=== PATIENT | male | born 1965 | race Hispanic/Latino ===

== ENCOUNTER 2018-02-26 07:17 | Day surgery (SDC) | payer BC ==
[2018-02-25 13:03] VITALS: BMI 24.4
[2018-02-26 07:57] LABS: BASO # 0.04 K/mm3 (0.0-2.0); BASO % 0.6 % (0.0-3.0); EOS % 14.4 % (1.5-5.0); GRAN # 4.17 (1.4-6.5); GRAN % 59.5 % (50.0-68.0); HEMOGLOBIN 13.7 g/dL (14.0-18.0); LYMPH # 1.3 (1.2-3.4); LYMPH % 18.6 % (22.0-35.0); MEAN CELL VOLUME 88.7 fl (80.0-105.0); MEAN CORPUSCULAR HEMOGLOBIN 29.7 pg (25.0-35.0); MEAN CORPUSCULAR HGB CONC 33.5 g/dl (31.0-37.0); MEAN PLATELET VOLUME 11.6 fl (7.0-11.0); MONO # 0.5 (0.1-0.6); MONO % 6.9 % (1.0-6.0); RBC 4.61 10^6/uL (3.5-6.1); RED CELL DISTRIBUTION WIDTH 14.1 % (11.5-14.5)
[2018-02-26 08:11] LABS: INR 0.94 (0.93-1.08); PARTIAL THROMBOPLASTIN TIME 29.3 Seconds (25.1-36.5); PROTHROMBIN TIME 10.8 SECONDS (9.4-12.5)
[2018-02-26] MEDS ORDERED: Midazolam 2 MG/2 ML VIAL ONE (09:06)
[2018-02-26] MEDS ORDERED: Lidocaine 1% Inj (20ml) ONE (09:07)
[2018-02-26] MEDS ORDERED: Oxycodone/Acetaminophen 5/325 mg Tab PO PRN (10:03)
[2018-02-26] MEDS ORDERED: Sodium Chloride 0.45% 1,000 ML IV SCH (10:15)
[2018-02-26 11:16] VITALS: BP 137/85; PULSE 45; RESP 20; TEMP 98.3; O2SAT 98
--- NOTE | 2018-02-26 11:21 | CT ---
PROCEDURE: CT guided omental biopsy. HISTORY: Carcinomatosis. Needs omental biopsy. PHYSICIAN(S): Freddy Chiu MD. TECHNIQUE: The relative risks and indications of the procedure were explained to the patient and consent obtained. The patient was given 2 bottles of oral contrast prior to the procedure. The patient was placed supine on the CT scanner and preliminary images through the upper abdomen obtained. Conscious sedation and monitoring were provided throughout the procedure by a nurse. There is a small amount of ascites and omental thickening noted. Incidental note is made of right hydronephrosis which is moderate. A oblique anterior approach was selected and the area prepped and draped in the usual sterile fashion. 1% Xylocaine was used to anesthetize the skin and soft tissues. A 17-gauge guiding needle was advanced into the omental thickening in the upper abdomen. Its position was confirmed with CT. Using coaxial technique, multiple core biopsies were obtained. The postprocedure images show no evidence of significant hemorrhage. A small amount of free air was noted. The patient was asymptomatic without tenderness or pain. His vital signs were stable. IMPRESSION: 1. CT-guided omental biopsy as described above.
[2018-02-26 14:43] LABS: CALCIUM 9.8 mg/dL (8.4-10.5)
== END 2018-02-26 12:00 | disposition home or self-care (01) ==
LOC: SDS 07:17
PROVIDERS: ATTEND Radiology Vascular & Interventional Radiology
DX: C19 Malignant neoplasm of rectosigmoid junction (principal); C78.6 Secondary malignant neoplasm of retroperitoneum and peritoneum
CPT/HCPCS: 36415; 49180; 77012; 80048; 85025; 85610; 85730; 88305; J2250; J2405; J3010; J7030

== ENCOUNTER 2018-03-11 09:26 | Inpatient (IN) | payer OTHER ==
[2018-03-11 09:36] VITALS: BMI 24.3
--- NOTE | 2018-03-11 10:42 | ED PDOC ---
Arrival/HPI - General Historian: Patient - History of Present Illness Time/Duration: > week Symptom Course: Worsening Activities at Onset: Other - General Chief Complaint: Abnormal Skin Integrity Time Seen by Provider: 03/11/18 09:31 - History of Present Illness Narrative History of Present Illness (Text): 03/11/18 10:49 53 yo M with PMH of anxiety presents to ER sent by his oncologist Dr. Fraga for hyperbilirubinemia. Per patient, his bilirubin level was 14.4, up from 4 two weeks ago. Per patient, a few weeks ago, he was persistently nauseous and vomiting, then developed scleral icterus. Workup revealed fluid in the abdomen, and omental masses, which were biopsied and showed mucinous adenocarcinoma of unknown origin. Patient subsequently had colonoscopy and EGD with Dr. De Dios, which were both negative. Patient had PET/CT today, which has not yet been interpreted. Patient currently denies any pain, nausea, vomiting, diarrhea, constipation, fever, chills, abdominal pain, chest pain, shortness of breath, abdominal distention or bloating. (Madhav,Shyann) Past Medical History - Provider Review Nursing Documentation Reviewed: Yes - Travel History Have you recently traveled outside [place] w/in the past 3 mons?: No - Past History Past History: No Previous - Infectious Disease Hx of Infectious Diseases: None - Tetanus Immunization Tetanus Immunization: Unknown - Cardiac Hx Pacemaker: No - Neurological Hx Paralysis: No - Hematological/Oncological Hx Blood Transfusions: No - Musculoskeletal/Rheumatological Hx Musculoskeletal Disorders: Yes - Psychiatric Hx Emotional Abuse: No Hx Physical Abuse: No Hx Substance Use: Yes (marijuana) - Anesthesia Hx Anesthesia: Yes Hx Anesthesia Reactions: No Hx Malignant Hyperthermia: No - Suicidal Assessment Feels Threatened In Home Enviroment: No Family/Social History - Physician Review Nursing Documentation Reviewed: Yes Family/Social History: Neoplasm/Cancer Smoking Status: Former Smoker (13 PYH, quit 15 years ago) Hx Alcohol Use: Yes (heavy drinker, quit 15 years ago) Hx Substance Use: Yes (marijuana, cocaine (15 yrs ago)) Route: Smoking/Inhalation Allergies/Home Meds Allergies/Adverse Reactions: Allergies No Known Allergies Allergy (Verified 03/11/18 13:11) Home Medications: Home Meds Medication Instructions Recorded Confirmed Sertraline [Zoloft] 100 mg PO DAILY 02/25/18 02/26/18 Review of Systems - Review of Systems Constitutional: Normal Eyes: Normal ENT: Normal Respiratory: Normal Cardiovascular: Normal Gastrointestinal: Normal Genitourinary Male: Normal Musculoskeletal: Normal Skin: Other (jauundice) Neurological: Normal Hemo/Lymphatic: Normal Psychiatric: Normal Physical Exam Vital Signs Reviewed: Yes Temperature: Afebrile Blood Pressure: Normal Pulse: Regular Respiratory Rate: Normal Appearance: Positive for: Well-Appearing, Non-Toxic Pain Distress: None Mental Status: Positive for: Alert and Oriented X 3 - Systems Exam Head: Present: Atraumatic, Normocephalic Pupils: Present: PERRL Extroacular Muscles: Present: EOMI Conjunctiva: Present: Normal, Other (icteric) Mouth: Present: Moist Mucous Membranes Neck: Present: Normal Range of Motion Respiratory/Chest: Present: Clear to Auscultation, Good Air Exchange Cardiovascular: Present: Regular Rate and Rhythm, Normal S1, S2 Abdomen: Present: Normal Bowel Sounds, Other (no shifting dullness or fluid wave ). No: Tenderness, Distention, Peritoneal Signs, Rebound, Guarding Upper Extremity: Present: Normal Inspection Lower Extremity: Present: Normal Inspection. No: CALF TENDERNESS Neurological: Present: GCS=15, CN II-XII Intact Skin: Present: Warm, Dry, Other (diffuse jaundice) Psychiatric: Present: Alert, Oriented x 3, Normal Insight, Normal Concentration Vital Signs Temp Pulse Resp BP Pulse Ox 03/11/18 13:08 53 L 18 149/88 100 03/11/18 09:45 97.6 F 66 17 141/88 99 Medical Decision Making ED Course and Treatment: 03/11/18 11:01 Impression: Jaundice Differential diagnoses include, but are not limited to: obstructive jaundice 2/ 2 metastatic disease, primary hepatobiliary obstructive disease Plan: -- Labs: CBC, CMP, PT/PTT, UA -- CXR and EKG -- Reassess and dispo Prior visits: None Progress notes: -- Discussed case with Dr. De Dios, patient's GI doctor, who recommends MRCP for workup of obstructive jaundice -- Considering acuity of bilirubin elevation, will discuss admission with PMD Dr. Evans 03/11/18 12:09 -- Discussed case with Dr. Reyes, who accepts patient to his service. Patient in agreement with plan (Shyann Corey) Patient seen and evaluated with medical assistant supervisor. On exam, patient is jaundiced, but afebrile, denies pain or discomfort. Bilirubin is acutely elevated, suspect possible biliary obstruction. Discussed case with Dr. De Dios, GI as well as his PMD, Dr Abbe Medrano. MRCP ordered and patient admitted for further workup. He is cv stable with no pain or fever in ED. (Erin,Veronica) - Lab Interpretations Lab Results: 03/11/18 10:40 03/11/18 10:40 Lab Results 03/11/18 10:40: Sodium 135, Potassium 3.9, Chloride 100, Carbon Dioxide 23, Anion Gap 15, BUN 23 H, Creatinine 1.5, Est GFR ( Amer) 59, Est GFR (Non- Af Amer) 49, Random Glucose 135 H, Calcium 9.0, Total Bilirubin 17.8 H, Direct Bilirubin 15.8 H, AST 137 H, ALT 261 H, Alkaline Phosphatase 460 H, Total Protein 7.1, Albumin 3.9, Globulin 3.2, Albumin/Globulin Ratio 1.2 03/11/18 10:40: Urine Color Dark yellow, Urine Appearance Slight-cloudy, Urine pH 6.5, Ur Specific [place] 1.020, Urine Protein 30 H, Urine Glucose (UA) Negative, Urine Ketones Negative, Urine Blood Negative, Urine Nitrate Negative, Urine Bilirubin Large H, Urine Urobilinogen 1.0 H, Ur Leukocyte Esterase Negative, Urine RBC 0 - 2, Urine WBC 2 - 5, Ur Epithelial Cells None, Amorphous Sediment Few, Urine Bacteria Many, Coarse Granular Casts Trace H 03/11/18 10:40: PT 11.6, INR 1.01, APTT 27.4 03/11/18 10:40: WBC 8.8 D, RBC 3.98, Hgb 11.9 L, Hct 33.8 L, MCV 84.9 D, MCH 29.9, MCHC 35.2, RDW 16.3 H, Plt Count 291, MPV 12.0 H, Gran % 74.4 H, Lymph % ( Auto) 14.7 L, [place] % (Auto) 6.6 H, Eos % (Auto) 4.0, Baso % (Auto) 0.3, Gran # 6.51 H, Lymph # (Auto) 1.3, [place] # (Auto) 0.6, Eos # (Auto) 0.4, Baso # (Auto) 0.03 - RAD Interpretation Radiology Orders: 03/11/18 10:17 CHEST PORTABLE [RAD] Stat - Medication Orders Current Medication Orders: Sodium Chloride (Sodium Chloride 0.9%) 1,000 mls @ 100 mls/hr IV .Q10H [facility] Last Admin: 03/12/18 00:57 Dose: 100 mls/hr eMAR Start Stop Document 03/12/18 00:57 (Rec: 03/12/18 00:57 [id number]) Intravenous Solution Start Date 03/12/18 Start Time 00:57 Pantoprazole Sodium (Protonix Ec Tab) 40 mg PO 0600 [facility] Sertraline HCl (Zoloft) 100 mg PO DAILY [facility] Discontinued Medications Cholestyramine Resin (Questran) 4 gm PO DAILY [facility] Last Admin: 03/11/18 15:07 Dose: 4 gm Pneumococcal Polyvalent Vaccine (Pneumovax 23 Vaccine) 0.5 ml IM .ONCE ONE Stop: 03/11/18 17:05 Disposition/Present on Arrival - Present on Arrival Any Indicators Present on Arrival: No History of DVT/PE: No History of Uncontrolled Diabetes: No Urinary Catheter: No History of Decub. Ulcer: No History Surgical Site Infection Following: None - Disposition Have Diagnosis and Disposition been Completed?: Yes Disposition Time: 12:10 Patient Plan: Admission - Disposition Diagnosis: Hyperbilirubinemia, Jaundice, Carcinomatosis Disposition: HOSPITALIZED Condition: GUARDED
--- NOTE | 2018-03-11 10:48 | RAD ---
HISTORY: jaundice; h/o cancer COMPARISON: No prior. FINDINGS: LUNGS: No active pulmonary disease. PLEURA: No significant pleural effusion identified, no pneumothorax apparent. CARDIOVASCULAR: Normal. OSSEOUS STRUCTURES: No significant abnormalities. VISUALIZED UPPER ABDOMEN: Normal. OTHER FINDINGS: None. IMPRESSION: No active disease.
[2018-03-11 10:52] LABS: BASO # 0.03 K/mm3 (0.0-2.0); BASO % 0.3 % (0.0-3.0); EOS # 0.4 (0.0-0.7); GRAN # 6.51 (1.4-6.5); GRAN % 74.4 % (50.0-68.0); HEMOGLOBIN 11.9 g/dL (14.0-18.0); LYMPH # 1.3 (1.2-3.4); LYMPH % 14.7 % (22.0-35.0); MEAN CELL VOLUME 84.9 fl (80.0-105.0); MEAN CORPUSCULAR HEMOGLOBIN 29.9 pg (25.0-35.0); MEAN CORPUSCULAR HGB CONC 35.2 g/dl (31.0-37.0); MONO # 0.6 (0.1-0.6); MONO % 6.6 % (1.0-6.0); RBC 3.98 10^6/uL (3.5-6.1); RED CELL DISTRIBUTION WIDTH 16.3 % (11.5-14.5); WHITE BLOOD COUNT 8.8 10^3/ul (4.5-11.0)
[2018-03-11 11:07] LABS: PROTHROMBIN TIME 11.6 SECONDS (9.4-12.5)
[2018-03-11 11:08] LABS: INR 1.01 (0.93-1.08); PARTIAL THROMBOPLASTIN TIME 27.4 Seconds (25.1-36.5)
[2018-03-11 11:17] LABS: BILIRUBIN,DIRECT 15.8 mg/dL (0.0-0.4)
[2018-03-11 11:21] LABS: ALB/GLOB RATIO 1.2 (1.1-1.8); ALBUMIN 3.9 g/dL (3.0-4.8)
[2018-03-11 11:26] LABS: PH,URINE 6.5 (4.7-8.0); URINE BILIRUBIN LARGE (NEGATIVE); URINE BLOOD NEGATIVE (NEGATIVE); URINE GLUCOSE (UA) NEGATIVE (NEGATIVE); URINE LEUKOCYTE ESTERASE NEGATIVE Leu/uL (NEGATIVE); URINE PROTEIN 30 mg/dL (<30 mg/dL)
[2018-03-11 11:27] LABS: URINE APPEARANCE SLIGHT-CLOUDY (CLEAR); URINE COLOR DARK YELLOW (YELLOW)
[2018-03-11 11:28] LABS: URINE BACTERIA MANY (NEG); URINE RBC 0 - 2 /hpf (0-2)
[2018-03-11 11:29] LABS: URINE COARSE GRANULAR CAST TRACE /hpf (0-2)
[2018-03-11 11:30] LABS: URINE AMORPHOUS SEDIMENT FEW
[2018-03-11] MEDS ORDERED: Gadodiamide 287 MG/ML VIAL (20ML) IV ONE (13:38)
[2018-03-11] MEDS ORDERED: Cholestyramine 4 gm/Pkt UD PO SCH (14:45)
--- NOTE | 2018-03-11 14:49 | MRI ---
PROCEDURE: MRI Abdomen with and without contrast HISTORY: Obstructive jaundice COMPARISON: PET-CT scan performed on the same day. TECHNIQUE: Multisequence, multiplanar MR images of the abdomen with and without gadolinium contrast enhancement. 20 cc of Omniscan FINDINGS: LIVER: There is severe intrahepatic ductal dilatation. There is dilatation of the hepatic duct just above the level of the cystic duct. This measures 13 mm in diameter. There is an abrupt cut off with nonvisualization of the common duct below this level. There is no obvious enhancing mass or stone. The finding is best demonstrated on image 19 series 7 GALLBLADDER: Unremarkable. SPLEEN: Unremarkable. PANCREAS: Unremarkable. ADRENALS: Unremarkable. KIDNEYS: There is severe hydronephrosis on the right. AORTA: No aneurysm. ASCITES: There is moderate ascites. There is an omental mass. The omentum was recently biopsied. PERITONEUM: As above LYMPH NODES: Unremarkable. OTHER FINDINGS: None. IMPRESSION: Biliary obstruction just below the level of the cystic duct. The etiology of obstruction uncertain. There is moderate ascites with omental mass. Severe right-sided hydronephrosis
[2018-03-11] MEDS: Sodium Chloride 0.9% 1,000 ML IV SCH (15:08)
--- NOTE | 2018-03-11 15:22 | HP ---
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 Fraga (Heme/Onc) after outpatient labs demonstrated severe hyperbilirubinemia of 16. The patient was initially seen in his PMD's office on 02/18/2018 for evaluation of nausea, vomiting and inability to tolerate p.o. intake. Physical examination at that time found him to be jaundiced and icteric but was otherwise unremarkable. He was sent for a CT of the abdomen and pelvis with findings demonstrating mild to moderate ascites and a mesenteric nodularity with caking highly suggestive of a tumor. Arrangements were made for CT-guided biopsy with Dr. Freddy Chiu on 02/26/2018 with the pathology report confirming metastatic mucinous adenocarcinoma favoring colorectal origin. The patient was then referred to Dr. De Dios of GI and underwent an EGD and colonoscopy, both of which were unremarkable. He was also referred to Dr. Fraga for continued workup and staging of his newly-diagnosed omental adenocarcinoma with unknown primary. The patient was scheduled for a PET scan on the day of presentation to the ED but when his labs demonstrated the profound hyperbilirubinemia (which was coral from 4.2 in 1 week) he was advised to present to the ED for continued management. PAST MEDICAL HISTORY: As per HPI, also depression. PAST SURGICAL HISTORY: Surgical debridement of MRSA infection on his lower extremities. ALLERGIES: NKDA. MEDICATIONS: Protonix 40 mg p.o. daily and Zoloft 100 mg p.o. daily. FAMILY HISTORY: Significant for hypertension and lung cancer in his father. No history of colorectal cancer. SOCIAL HISTORY: The patient is and lives with his . He reports a former 30-pack- year smoking history but quit 15 years ago. He reports social alcohol use and denies illicit drug abuse. REVIEW OF SYSTEMS: Positive for weakness, malaise, poor appetite, jaundice, nausea, abdominal distention and abdominal pain. Remainder of ROS is negative except as per HPI. PHYSICAL EXAMINATION: VITAL SIGNS: Temperature 97.6, pulse 66, blood pressure 141/88, respiratory rate 18, oxygen saturation 99% on room air. GENERAL: No apparent distress. HEENT: PERRL, EOMI. Sclerae are icteric. Conjunctival pallor is noted. NECK: No JVD. No bruits. No lymphadenopathy. LUNGS: Clear to auscultation. CARDIOVASCULAR: Regular rate and rhythm. Normal S1 and S2. No murmurs, rubs or gallops. ABDOMEN: Normoactive bowel sounds. Soft, nontender, mildly distended. No rigidity. EXTREMITIES: No edema. NEUROLOGIC: Awake, alert and oriented x 3. No focal motor deficits. No asterixis. LABORATORY DATA: WBC 8.8, hemoglobin 11.9, hematocrit 34, platelets 291. Chemistry reviewed and unremarkable. Total bilirubin 17.8, direct bilirubin 15.8, AST 137, ALT 261, alk phos 460. INR 1. IMAGING STUDIES: MRCP demonstrates severe intrahepatic ductal dilatation just above the level of the cystic duct with biliary obstruction and moderate ascites. 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 PLAN: 1. Metastatic mucinous adenocarcinoma of unknown primary. The patient is s/p MRCP with the results having been reviewed. Dr. De Dios of GI has been consulted for further evaluation and recommendations. Dr. Fraga of Hematology/Oncology has also been consulted. We will start the patient on NS at 100 mL per hour. We will start Cholestyramine 4 g p.o. daily. The patient underwent a PET scan earlier today with the results still pending. We will need to discuss the optimal approach for relieving the intrahepatic obstruction and possible need for ERCP and intrahepatic stent placement. 2. Depression. Resume Zoloft 100 mg p.o. daily. 3. Prophylaxis. GI prophylaxis is not indicated as the patient is eating. DVT prophylaxis is not indicated as the patient is ambulatory. CODE STATUS: Full code. Rajinder Medrano MD MTDJoe
[2018-03-11] MEDS ORDERED: Pneumococcal 23-Valent Vaccine IM ONE (17:04)
--- NOTE | 2018-03-11 18:39 | CARD ---
APPROVED REPORT EKG Measurement Heart [id number] <Conclusion> Normal sinus rhythm Incomplete right bundle branch block Septal infarct, age undetermined Abnormal ECG
--- NOTE | 2018-03-12 00:15 | CP.PCM.CON ---
History of Present Illness - History of Present Illness History of Present Illness: Mr. Martin is a young 53 year old male recently diagnosed with adenocarcinoma of unknown primary on omental biopsy. He developed jaundice few weeks ago, bilurubin was 4.0. CT abdomen without contrast also showed right hydronephrosis. Blood work done on 02/03/18 showed increased bilirubin to 16.0. He was advised admission to hospital. CT PET scan done today did not show any mass lesion. MRCP also done today showed intrahepatic biliary dilatation. NO mass in pancreas or randy hepatis identified. He also has ascites. No nausea, vomiting. EGD, colonoscopy were negative for any mass lesion. Review of Systems - Constitutional Constitutional: As Per HPI, Fatigue, Malaise, Weakness - EENT Eyes: absent: As Per HPI, Blind Spots, Blurred Vision, Change in Vision, Decreased Night Vision, Diplopia, Discharge, Dry Eye, Exophthalmos, Floaters, Irritation, Itchy Eyes, Loss of Peripheral Vision, Pain, Photophobia, Requires Corrective Lenses, Sees Flashes, Spots in Vision, Tunnel Vision, Other Visual Disturbances, Loss of Vision, Other Ears: absent: As Per HPI, Decreased Hearing, Ear Discharge, Ear Pain, Tinnitus, Abnormal Hearing, Disequilibrium, Dizziness, Other Nose/Mouth/Throat: absent: As Per HPI, Epistaxis, Nasal Congestion, Nasal Discharge, Nasal Obstruction, Nasal Trauma, Nose Pain, Post Nasal Drip, Sinus Pain, Sinus Pressure, Bleeding Gums, Change in Voice, Dental Pain, Dry Mouth, Dysphagia, Halitosis, Hoarsness, Lip Swelling, Mouth Lesions, Mouth Pain, Odynophagia, Sore Throat, Throat Swelling, Tongue Swelling, Facial Pain, Neck Pain, Neck Mass, Other - Cardiovascular Cardiovascular: absent: As Per HPI, Acrocyanosis, Chest Pain, Chest Pain at Rest , Chest Pain with Activity, Claudication, Diaphoresis, Dyspnea, Dyspnea on Exertion, Edema, Irregular Heart Rhythm, Pain Radiating to Arm/Neck/Jaw, Leg Edema, Leg Ulcers, Lightheadedness, Orthopnea, Palpitations, Paroxysmal Nocturnal Dyspnea, Pedal Edema, Radiating Pain, Rapid Heart Rate, Slow Heart Rate, Syncope, Other - Respiratory Respiratory: absent: As Per HPI, Cough, Dyspnea, Hemoptysis, Dyspnea on Exertion , Wheezing, Snoring, Stridor, Pain on Inspiration, Chest Congestion, Excessive Mucous Production, Change in Mucous Color, Pain with Coughing, Other - Gastrointestinal Gastrointestinal: absent: As Per HPI, Abdominal Pain, Belching, Bloating, Change in Bowel Habits, Change in Stool Character, Coffee Ground Emesis, Constipation, Cramping, Diarrhea, Dyspepsia, Dysphagia, Early Satiety, Excessive Flatus, Fecal Incontinence, Heartburn, Hematemesis, Hematochezia, Loose Stools, Melena, Nausea, Odynophagia, Temesmus, Vomiting, Other - Genitourinary Genitourinary: As Per HPI - Musculoskeletal Musculoskeletal: absent: As Per HPI, Abnormal Gait, Arthralgias, Atrophy, Back Pain, Deformity, Joint Swelling, Limited Range of Motion, Loss of Height, Muscle Cramps, Muscle Weakness, Myalgias, Neck Pain, Numbness, Radiating Pain into Limb, Stiffness, Tingling, Other - Integumentary Integumentary: Jaundice - Neurological Neurological: absent: As Per HPI, Abnormal Gait, Abnormal Hearing, Abnormal Movements, Abnormal Speech, Behavioral Changes, Burning Sensations, Confusion, Convulsions, Disequilibrium, Dizziness, Numbness, Focal Weakness, Frequent Falls , Headaches, Lack of Coordination, Loss of Vision, Memory Loss, Paresthesias, Radicular Pain, Restless Legs, Sensory Deficit, Syncope, Tingling, Tremor, Vertigo, Weakness, Other Visual Disturbances, Other - Psychiatric Psychiatric: absent: As Per HPI, Abnormal Sleep Pattern, Anhedonia, Anxiety, Auditory Hallucinations, Behavioral Changes, Change in Appetite, Change in Libido, Confusion, Depression, Difficulty Concentrating, Hallucinations, Homicidal Ideation, Hopelessness, Irritability, Memory Loss, Mood Swings, Panic Attacks, Paranoia, Suicidal Ideation, Visual Hallucinations, Tactile Hallucinations, Other - Endocrine Endocrine: absent: As Per HPI, Change in Body Appearance, Change in Libido, Cold Intolorance, Deepening of Voice, Excessive Sweating, Fatigue, Flushing, Heat Intolorance, Increase in Ring/Shoe/Hat Size, Palpitations, Polydipsia, Polyphagia, Polyuria, Other - Hematologic/Lymphatic Hematologic: As Per HPI Past Patient History - Infectious Disease Hx of Infectious Diseases: None - Tetanus Immunizations Tetanus Immunization: Unknown - Past Social History Smoking Status: Former Smoker - CARDIAC Hx Cardiac Disorders: No Hx Pacemaker: No - PULMONARY Hx Respiratory Disorders: No - NEUROLOGICAL Hx Neurological Disorder: No - HEENT Hx HEENT Problems: No - RENAL Hx Chronic Kidney Disease: No - ENDOCRINE/METABOLIC Hx Endocrine Disorders: No - HEMATOLOGICAL/ONCOLOGICAL Hx Blood Disorders: Yes Hx Cancer: Yes (COLON CA WITH METS) Hx Metastesis: Yes (LIVER) - INTEGUMENTARY Hx Dermatological Problems: Yes (JAUNDICED 03-11-18) - MUSCULOSKELETAL/RHEUMATOLOGICAL Hx Musculoskeletal Disorders: Yes Hx Falls: No - GASTROINTESTINAL Hx Gastrointestinal Disorders: Yes (CONSTIPATION) - GENITOURINARY/GYNECOLOGICAL Hx Genitourinary Disorders: No - PSYCHIATRIC Hx Psychophysiologic Disorder: Yes (USED TO SMOKE CIGARETTES,ETOH ABUSE, MARIJUANA AND COCAINE USE) Hx Emotional Abuse: No Hx Physical Abuse: No Hx Substance Use: Yes (H/O COCAINE,MJ) - SURGICAL HISTORY Hx Surgeries: Yes (OMENTAL TISSUE BIOPSY,SCAR TISSUE REMOVED TOLEFT LEG 2009) - ANESTHESIA Hx Anesthesia: Yes Hx Anesthesia Reactions: No Hx Malignant Hyperthermia: No Meds Allergies/Adverse Reactions: Allergies Allergy/AdvReac Type Severity Reaction Status Date / Time No Known Allergies Allergy Verified 03/11/18 13:11 - Medications Medications: Current Medications Sodium Chloride (Sodium Chloride 0.9%) 1,000 mls @ 100 mls/hr IV .Q10H [facility] Last Admin: 03/11/18 15:08 Dose: 100 mls/hr Sertraline HCl (Zoloft) 100 mg PO DAILY [facility] Physical Exam - Constitutional Appears: Non-toxic - Head Exam Head Exam: ATRAUMATIC, NORMAL INSPECTION, NORMOCEPHALIC - Eye Exam Eye Exam: Normal appearance, Scleral icterus - ENT Exam ENT Exam: Mucous Membranes Moist - Neck Exam Neck exam: Positive for: Normal Inspection - Respiratory Exam Respiratory Exam: Clear to Auscultation Bilateral, NORMAL BREATHING PATTERN - Cardiovascular Exam Cardiovascular Exam: REGULAR RHYTHM, +S1, +S2 - GI/Abdominal Exam GI & Abdominal Exam: Normal Bowel Sounds, Soft - Extremities Exam Extremities exam: Positive for: normal inspection - Back Exam Back exam: NORMAL INSPECTION - Neurological Exam Neurological exam: Alert, CN II-XII Intact, Normal Gait, Oriented x3 - Psychiatric Exam Psychiatric exam: Normal Affect - Skin Additional comments: icteric Results - Vital Signs Recent Vital Signs: Last Vital Signs Temp 97.6 F 03/11/18 22:51 Pulse 57 L 03/11/18 22:51 Resp 18 03/11/18 22:51 BP 120/76 03/11/18 22:51 Pulse Ox 96 03/11/18 22:51 - Labs Result Diagrams: 03/11/18 10:40 03/11/18 10:40 Assessment & Plan - Assessment and Plan (Free Text) Assessment: 1. Adenocarcinoma on omental biopsy. Primary unknown. Immunostains suggestive of colo-rectal origin. CT-PET no mass lesion identified. MRCP- no mass, biliary dilatation. Discussed with Dr. Lomax. ERCP planned . Dr. Montgomery consulted. [place] biopsy will be taken . If biliary drainage could not be done by ERCP, then percutaneous drainage will be planned. 2. jaundice : increased in past one week. Biliary drainage planned. 3. Right hydronephrosis : etiology unknown. No discrete mass identified leading to compression. 4. Heme : stable. discussed with patient at length. Discussed with telephonically as per patient's request. Explained further work up. Answered all their questions. Discussed with Dr. Reyes, Thank you for allowing us to participate in Mr. Mario palomino. - Date & Time Date: 03/12/18 Time: 17:00
[2018-03-12] MEDS: Sodium Chloride 0.9% 1,000 ML IV SCH (00:57)
[2018-03-12 07:31] LABS: BASO # 0.03 K/mm3 (0.0-2.0); BASO % 0.4 % (0.0-3.0); EOS # 0.5 (0.0-0.7); EOS % 7.9 % (1.5-5.0); GRAN # 4.52 (1.4-6.5); GRAN % 67.7 % (50.0-68.0); HEMOGLOBIN 11.6 g/dL (14.0-18.0); LYMPH % 14.3 % (22.0-35.0); MEAN CELL VOLUME 85.3 fl (80.0-105.0); MEAN CORPUSCULAR HEMOGLOBIN 29.8 pg (25.0-35.0); MEAN CORPUSCULAR HGB CONC 34.9 g/dl (31.0-37.0); MEAN PLATELET VOLUME 12.4 fl (7.0-11.0); MONO # 0.7 (0.1-0.6); MONO % 9.7 % (1.0-6.0); RBC 3.89 10^6/uL (3.5-6.1); RED CELL DISTRIBUTION WIDTH 16.9 % (11.5-14.5); WHITE BLOOD COUNT 6.7 10^3/ul (4.5-11.0)
[2018-03-12 07:49] LABS: ALB/GLOB RATIO 1.1 (1.1-1.8); ALBUMIN 3.4 g/dL (3.0-4.8); ALT/SGPT 226 U/L (7-56); AST/SGOT 117 U/L (17-59); BLOOD UREA NITROGEN 18 mg/dL (7-21); CALCIUM 9.1 mg/dL (8.4-10.5); GFR AFRICAN-AMERICAN > 60; GFR NON-AFRICAN AMERICAN 53
--- NOTE | 2018-03-12 09:03 | PN ---
SUBJECTIVE: The patient was seen and examined at bedside on the general medical lao. No acute events overnight. He remains afebrile, hemodynamically stable and is pending evaluation with Dr. Montgomery for ERCP. OBJECTIVE: VITAL SIGNS: Temperature 98.1, pulse 50, blood pressure 123/82, respiratory rate 20, oxygen saturation 99% on room air. GENERAL: Jaundiced man, sitting up in his chair in no apparent distress. HEENT: PERRL, EOMI. Sclerae are icteric. No conjunctival pallor. NECK: No JVD. No bruits. No lymphadenopathy. LUNGS: Clear to auscultation. CARDIOVASCULAR: Regular rate and rhythm. Normal S1 and S2. No murmurs, rubs or gallops. ABDOMEN: Normoactive bowel sounds. Soft, nontender. Mildly distended. No rigidity. EXTREMITIES: No edema. NEUROLOGIC: Awake, alert and oriented x 3. No focal motor deficits. No asterixis. LABORATORY DATA: WBC 6.7, hemoglobin 11.6, hematocrit 33, platelets 276. Chemistry reviewed and unremarkable. T bili 17.4, AST 117, ALT 226, alk phos 432. 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 PLAN: 1. Metastatic mucinous adenocarcinoma of unknown primary. MRCP results reviewed and the patient is pending ERCP with Dr. Montgomery. If ERCP is unsuccessful/unfeasible, we will discuss with Dr. Freddy Chiu the possibility of palliative percutaneous drainage. Input from Dr. Fraga appreciated. Official PET scan results are pending. 2. Depression. Continue Zoloft 100 mg p.o. daily. 3. Prophylaxis. Continue Protonix for GI prophylaxis. DVT prophylaxis is not indicated as the patient is ambulatory. CODE STATUS: Full code. Rajinder Medrano MD [facility]MAN
[2018-03-12] MEDS: Pantoprazole 40 mg EC Tab PO SCH (10:09)
--- NOTE | 2018-03-12 10:56 | CON ---
DATE: 03/12/2018 CONSULTATION IN GASTROENTEROLOGY REQUESTING PHYSICIAN: Rajinder Medrano MD. REASON FOR CONSULT: I have been asked to see this 53-year-old male with several weeks of midabdominal pain, intermittent vomiting, approximate 10 pounds weight loss, who saw Dr. Rajinder Medrano in his office approximately 2 weeks ago and was noted to be jaundiced. Initial blood work showed bilirubin to be in the 4 g range with mildly elevated liver enzymes. The patient underwent a CT scan of the abdomen and pelvis as an outpatient, which revealed lymphadenopathy and omental metastasis. The patient underwent an outpatient CT-guided biopsy of the omental metastasis, which revealed mucinous adenocarcinoma suggestive of colon primary. The patient underwent an upper endoscopy and colonoscopy this week which were negative for malignancy. He did have a small duodenal ulcer, which was nonbleeding. The patient was seen by Dr. Fraga. Repeat blood work several days ago showed his total bilirubin to be in the 17 g range, which was up from around 4 two weeks ago. The patient underwent a MRI, MRCP yesterday, which revealed obstruction of the mid common bile duct with severe intrahepatic biliary dilatation. The patient is admitted for further treatment. He currently denies any abdominal pain, fevers, chills, nausea, vomiting, rectal bleeding or melena. He does admit to pruritus. PAST MEDICAL HISTORY: Notable for cellulitis of his lower extremities with MRSA, depression. PAST SURGICAL HISTORY: Notable for debridement of lower extremity infection. FAMILY HISTORY: Notable for lung cancer in the father and hypertension. SOCIAL HISTORY: The patient has smoked up to between 1-2 packs of cigarettes a day for many years, but quit 15 years ago. He denies alcohol abuse. REVIEW OF SYSTEMS: Fourteen-point review of systems is notable for jaundice, abdominal pain, weight loss, generalized weakness. MEDICATIONS AT HOME: Include sertraline and Protonix. PHYSICAL EXAMINATION: GENERAL: Middle-aged male, appearing deeply jaundiced. VITAL SIGNS: Revealed temperature of 98.1, blood pressure 123/82, heart rate of 50. HEENT: Reveals sclerae to be icteric. Conjunctivae pink. NECK: Supple. CHEST: Reveal lungs to be clear. HEART: Reveals a regular rate and rhythm. ABDOMEN: Softly distended, nontender. No palpable mass. EXTREMITIES: Show no edema. LABORATORY DATA: Reveal white blood cell count 6.7, hemoglobin 11.6, platelet count 276,000. Chemistries reveal total bilirubin of 17.8, AST 137, ALT 261, alkaline phosphatase of 460, BUN 23, creatinine 1.5. Coags reveal PT 11.6, INR 1.01. IMPRESSION: A 53-year-old male with peritoneal carcinomatosis with obstructive jaundice with a biopsy of omental metastasis showing mucinous adenocarcinoma suggestive of colorectal etiology, also possibly pancreatico-hepatobiliary with [id number] positive staining on immunologic staining of the biopsy, one must rule out a primary cholangiocarcinoma of the common bile duct versus obstruction from extrinsic compression from lymphadenopathy or omental metastasis. RECOMMENDATIONS: I have requested Dr. Montgomery to perform an EUS, ERCP and possible SpyGlass with stent placement for biliary drainage. The patient's overall prognosis is poor with continue PPI given history of recently diagnosed duodenal ulcer. Kb De Dios MD
--- NOTE | 2018-03-12 11:37 | CT ---
PROCEDURE: CT Abdomen and Pelvis with contrast HISTORY: Pancreatic cancer COMPARISON: March 11, 2018. MRI abdomen with without contrast Summary of findings on the comparison examination: Biliary obstruction just below the level of cystic duct. TECHNIQUE: Contrast dose: 150 cc Omnipaque 350 Radiation dose: Total exam DLP = mGy-cm. This CT exam was performed using one or more of the following dose reduction techniques: Automated exposure control, adjustment of the mA and/or kV according to patient size, and/or use of iterative reconstruction technique. FINDINGS: LOWER THORAX: Unremarkable. LIVER: Profound dilatation of the intrahepatic biliary radicles. The common bile duct is dilated. The point of obstruction appears to be confluence of the common bile duct and cystic duct. No masses identified. This favors a diagnosis of cholangiocarcinoma rather than clinically suspected pancreatic neoplasm. Patent portal venous system. Intrahepatic, common portal veins and splenic vein are patent. GALLBLADDER AND BILE DUCTS: Unremarkable. PANCREAS: Unremarkable. No gross lesion or ductal dilatation. SPLEEN: Unremarkable. ADRENALS: Unremarkable. No mass. KIDNEYS AND URETERS: Marked right-sided hydronephrosis and hydroureter. The ureter area is dilated to the point of the iliac crests pelvic rim. This is confirmed on axial series 7 image 100/coronal series 604, image 64. VASCULATURE: Unremarkable. No aortic aneurysm. BOWEL: Unremarkable. No obstruction. No gross mural thickening. APPENDIX: A normal appendix is not visualized. PERITONEUM: Diffuse peritoneal carcinomatosis with bulky tumor in the upper and abdomen. Moderate volume intra-abdominal and pelvic ascites. Loculated ascites/pelvic cystic tumor identified anteriorly interposed between the peritoneal reflection in the anterolateral left wall the urinary bladder. Additional tumor deposits are seen in the deep pelvis. LYMPH NODES: Lymphadenopathy is difficult to distinguish from peritoneal carcinomatosis and on opacified bowel. BLADDER: Unremarkable. REPRODUCTIVE: The prostate is inseparable from pelvic tumor. BONES: No acute fracture. OTHER FINDINGS: None. IMPRESSION: 1. Markedly dilated intrahepatic biliary radicles. Beyond the confluence of the bile ducts and cystic duct the distal common bile duct is not seen. Differential considerations would include cholangiocarcinoma, metastatic disease to the randy hepatis region. The most typically etiology would be the alimentary tract. There is no pancreatic mass. 2. Peritoneal carcinomatosis, moderate volume intra-abdominal pelvic ascites. 3. Obstructive uropathy unilateral, right side. Hydronephrosis, hydroureter to a point of obstruction is been described above.
--- NOTE | 2018-03-12 12:27 | CP.PCM.CON ---
<Sobeida Mccarthy - Last Filed: 03/12/18 13:16> History of Present Illness - History of Present Illness History of Present Illness: GI Fellow PGY 4 Consult Note This is a 53 year old male with a pmhx of anxiety, alcohol abuse and former smoker who was sent from Oncologist for jaundice and hyperbilirubinemia. His bilirubin level was elevated, up from 4 two weeks ago. Per patient, a few weeks ago, he was persistently nauseous and vomiting, then developed scleral icterus. Workup revealed fluid in the abdomen, and omental masses, which were biopsied and showed mucinous adenocarcinoma of unknown origin. Patient subsequently had colonoscopy and EGD with Dr. De Dios, which were both negative. Patient had PET scan that was negative for mass lesions. Patient currently denies any pain, nausea, vomiting, diarrhea, constipation, fever, chills, abdominal pain, chest pain, shortness of breath, abdominal distention or bloating. He does report pruritus. MRCP also done today showed intrahepatic biliary dilatation but no mass in pancreas or randy hepatis identified, positive for ascites. ROS: A 12pt ROS was neg except as above PmHX: As stated in HPI SHx: prior alcohol and tobacco use quit 15yrs ago, +marijuana FHx: positive for lung and liver cancer Past Patient History - Infectious Disease Hx of Infectious Diseases: None - Tetanus Immunizations Tetanus Immunization: Unknown - Past Social History Smoking Status: Former Smoker - CARDIAC Hx Cardiac Disorders: No Hx Pacemaker: No - PULMONARY Hx Respiratory Disorders: No - NEUROLOGICAL Hx Neurological Disorder: No - HEENT Hx HEENT Problems: No - RENAL Hx Chronic Kidney Disease: No - ENDOCRINE/METABOLIC Hx Endocrine Disorders: No - HEMATOLOGICAL/ONCOLOGICAL Hx Blood Disorders: Yes Hx Cancer: Yes (COLON CA WITH METS) Hx Metastesis: Yes (LIVER) - INTEGUMENTARY Hx Dermatological Problems: Yes (JAUNDICED 03-11-18) - MUSCULOSKELETAL/RHEUMATOLOGICAL Hx Musculoskeletal Disorders: Yes Hx Falls: No - GASTROINTESTINAL Hx Gastrointestinal Disorders: Yes (CONSTIPATION) - GENITOURINARY/GYNECOLOGICAL Hx Genitourinary Disorders: No - PSYCHIATRIC Hx Psychophysiologic Disorder: Yes (USED TO SMOKE CIGARETTES,ETOH ABUSE, MARIJUANA AND COCAINE USE) Hx Emotional Abuse: No Hx Physical Abuse: No Hx Substance Use: Yes (H/O COCAINE,MJ) - SURGICAL HISTORY Hx Surgeries: Yes (OMENTAL TISSUE BIOPSY,SCAR TISSUE REMOVED TOLEFT LEG 2009) - ANESTHESIA Hx Anesthesia: Yes Hx Anesthesia Reactions: No Hx Malignant Hyperthermia: No Meds Allergies/Adverse Reactions: Allergies Allergy/AdvReac Type Severity Reaction Status Date / Time No Known Allergies Allergy Verified 03/11/18 13:11 - Medications Medications: Current Medications Sodium Chloride (Sodium Chloride 0.9%) 1,000 mls @ 100 mls/hr IV .Q10H [facility], [facility] Last Admin: 03/12/18 00:57 Dose: 100 mls/hr Pantoprazole Sodium (Protonix Ec Tab) 40 mg PO 0600 [facility] Last Admin: 03/12/18 10:09 Dose: Not Given Sertraline HCl (Zoloft) 100 mg PO DAILY [facility] Last Admin: 03/12/18 10:09 Dose: Not Given Physical Exam - Constitutional Appears: Non-toxic, No Acute Distress - Head Exam Head Exam: ATRAUMATIC, NORMAL INSPECTION, NORMOCEPHALIC - Eye Exam Eye Exam: EOMI, PERRL, Scleral icterus Pupil Exam: PERRL - ENT Exam ENT Exam: Mucous Membranes Moist - Neck Exam Neck exam: Positive for: Full Rom - Respiratory Exam Respiratory Exam: Clear to Auscultation Bilateral, NORMAL BREATHING PATTERN - Cardiovascular Exam Cardiovascular Exam: REGULAR RHYTHM, RRR, +S1, +S2 - GI/Abdominal Exam GI & Abdominal Exam: Normal Bowel Sounds, Soft. absent: Distended, Firm, Guarding, Organomegaly, Tenderness - Rectal Exam Rectal Exam: Deferred - Extremities Exam Extremities exam: Positive for: full ROM, normal inspection - Back Exam Back exam: NORMAL INSPECTION - Neurological Exam Neurological exam: Alert, Oriented x3 - Psychiatric Exam Psychiatric exam: Normal Affect, Normal Mood - Skin Skin Exam: Dry, Intact, Warm Additional comments: jaundice Results - Vital Signs Recent Vital Signs: Last Vital Signs Temp 98.1 F 03/12/18 00:00 Pulse 50 L 03/12/18 00:00 Resp 20 03/12/18 00:00 BP 123/82 03/12/18 00:00 Pulse Ox 99 03/12/18 00:00 - Labs Result Diagrams: 03/12/18 07:00 03/12/18 07:00 Labs: Laboratory Results - last 24 hr 03/12/18 03/12/18 07:00 07:00 WBC 6.7 D RBC 3.89 Hgb 11.6 L Hct 33.2 L MCV 85.3 MCH 29.8 MCHC 34.9 RDW 16.9 H Plt Count 276 MPV 12.4 H Gran % 67.7 Lymph % (Auto) 14.3 L [place] % (Auto) 9.7 H Eos % (Auto) 7.9 H Baso % (Auto) 0.4 Gran # 4.52 Lymph # (Auto) 1.0 L [place] # (Auto) 0.7 H Eos # (Auto) 0.5 Baso # (Auto) 0.03 Sodium 139 Potassium 3.9 Chloride 106 Carbon Dioxide 24 Anion Gap 13 BUN 18 Creatinine 1.4 Est GFR ( Amer) > 60 Est GFR (Non-Af Amer) 53 Random Glucose 97 Calcium 9.1 Total Bilirubin 17.4 H AST 117 H ALT 226 H Alkaline Phosphatase 432 H Total Protein 6.6 Albumin 3.4 Globulin 3.1 Albumin/Globulin Ratio 1.1 Assessment & Plan - Assessment and Plan (Free Text) Assessment: This is a 53yM presenting with painless jaundice. 1. Jaundice, obstructive 2. Mucinous adenocarcinomA, unknown origin 3. Pruritus 4. Hx of etoh/tobacco abuse Plan: -Continue supportive care with pain control and anti-emetics -Adenocarcinoma on omental biopsy, primary unknown, immunostains suggestive of colon-rectal origin -CT-PET no mass lesion identified -MRCP- no mass, biliary dilatation -Obstructive jaundice, MRCP reviewed, plan for ERCP tomorrow -NPO after midnight -Regular diet today -IVF hydration -CT Triple phase pancreatic protocol -Monitor LFTs -Will continue to follow closely <Concetta Deutsch - Last Filed: 03/12/18 14:51> Meds - Medications Medications: Current Medications Sodium Chloride (Sodium Chloride 0.9%) 1,000 mls @ 100 mls/hr IV .Q10H [facility] Last Admin: 03/12/18 00:57 Dose: 100 mls/hr Pantoprazole Sodium (Protonix Ec Tab) 40 mg PO 0600 [facility] Last Admin: 03/12/18 10:09 Dose: Not Given Sertraline HCl (Zoloft) 100 mg PO DAILY [facility] Last Admin: 03/12/18 10:09 Dose: Not Given Results - Vital Signs Recent Vital Signs: Last Vital Signs Temp 98.1 F 03/12/18 00:00 Pulse 50 L 03/12/18 00:00 Resp 20 03/12/18 00:00 BP 123/82 03/12/18 00:00 Pulse Ox 99 03/12/18 00:00 - Labs Result Diagrams: 03/12/18 07:00 03/12/18 07:00 Labs: Laboratory Results - last 24 hr 03/12/18 03/12/18 07:00 07:00 WBC 6.7 D RBC 3.89 Hgb 11.6 L Hct 33.2 L MCV 85.3 MCH 29.8 MCHC 34.9 RDW 16.9 H Plt Count 276 MPV 12.4 H Gran % 67.7 Lymph % (Auto) 14.3 L [place] % (Auto) 9.7 H Eos % (Auto) 7.9 H Baso % (Auto) 0.4 Gran # 4.52 Lymph # (Auto) 1.0 L [place] # (Auto) 0.7 H Eos # (Auto) 0.5 Baso # (Auto) 0.03 Sodium 139 Potassium 3.9 Chloride 106 Carbon Dioxide 24 Anion Gap 13 BUN 18 Creatinine 1.4 Est GFR ( Amer) > 60 Est GFR (Non-Af Amer) 53 Random Glucose 97 Calcium 9.1 Total Bilirubin 17.4 H AST 117 H ALT 226 H Alkaline Phosphatase 432 H Total Protein 6.6 Albumin 3.4 Globulin 3.1 Albumin/Globulin Ratio 1.1 Attending/Attestation - Attestation I have personally seen and examined this patient.: Yes I have fully participated in the care of the patient.: Yes I have reviewed all pertinent clinical information: Yes Notes (Text): 03/12/18 14:36 This is a 53 year old M presenting with painless jaundice s/p omental biopsy that showed adenoCA of unknown origin with LN and painless obstructive jaundice. MRCP unremarkable for pancreatic mass but shows IHD. GI consulted for biliary stent to relieve obstruction. Continue supportive care with pain control and anti-emetics. Regular diet today but NPO past midnight
[2018-03-13] MEDS: Pantoprazole 40 mg EC Tab PO SCH (05:29)
[2018-03-13 07:03] LABS: ALT/SGPT 222 U/L (7-56); AST/SGOT 122 U/L (17-59); BLOOD UREA NITROGEN 19 mg/dL (7-21); CALCIUM 9.1 mg/dL (8.4-10.5); GFR AFRICAN-AMERICAN > 60; GFR NON-AFRICAN AMERICAN 53
[2018-03-13 07:06] LABS: BASO # 0.03 K/mm3 (0.0-2.0); BASO % 0.4 % (0.0-3.0); EOS # 0.6 (0.0-0.7); EOS % 8.3 % (1.5-5.0); GRAN # 4.89 (1.4-6.5); GRAN % 69.2 % (50.0-68.0); HEMOGLOBIN 11.1 g/dL (14.0-18.0); LYMPH # 1.1 (1.2-3.4); LYMPH % 14.8 % (22.0-35.0); MEAN CORPUSCULAR HEMOGLOBIN 29.3 pg (25.0-35.0); MEAN PLATELET VOLUME 12.2 fl (7.0-11.0); MONO # 0.5 (0.1-0.6); MONO % 7.3 % (1.0-6.0); RBC 3.79 10^6/uL (3.5-6.1); RED CELL DISTRIBUTION WIDTH 17.4 % (11.5-14.5); WHITE BLOOD COUNT 7.1 10^3/ul (4.5-11.0)
[2018-03-13 07:16] LABS: INR 1.05 (0.93-1.08); PROTHROMBIN TIME 12.1 SECONDS (9.4-12.5)
[2018-03-13 07:28] LABS: ALB/GLOB RATIO 1.1 (1.1-1.8); ALBUMIN 3.4 g/dL (3.0-4.8)
--- NOTE | 2018-03-13 09:17 | PN ---
SUBJECTIVE: The patient was seen and examined at bedside on the general medical lao. No acute events overnight. He remains afebrile and hemodynamically stable. He is pending ERCP. PHYSICAL EXAMINATION VITAL SIGNS: Temperature 98, pulse 54, blood pressure 129/83, respiratory rate 20, oxygen saturation 100% on room air. GENERAL: Jaundiced man sitting upon his bed in no apparent distress. HEENT: PERRL, EOMI. Sclerae are icteric. No conjunctival pallor. NECK: No JVD. No bruits. No lymphadenopathy. LUNGS: Clear to auscultation. CARDIOVASCULAR: Regular rate and rhythm. Normal S1 and S2. No murmurs, rubs or gallops. ABDOMEN: Normoactive bowel sounds. Soft, nontender. Mildly distended. No rigidity. EXTREMITIES: No edema. NEUROLOGIC: Awake, alert and oriented x 3. No focal motor deficits. No asterixis. LABORATORY DATA: WBC 7.1, hemoglobin 11, hematocrit 33, platelets 286. Chemistry reviewed and unremarkable. T bili 18.2, AST 122, ALT 222, alkaline phosphatase 435. ASSESSMENT: The patient is a 53 year old man with newly-diagnosed metastatic mucinous adenocarcinoma to the omentum of unknown primary who was sent to the ED for management of progressively worsening hyperbilirubinemia and continued workup of his underlying omental mass. PLAN: 1. Metastatic mucinous adenocarcinoma of unknown primary. MRCP reviewed and findings favor possible cholangiocarcinoma. ERCP is pending and if unsuccessful , we will consult Dr. Freddy Chiu for possible palliative percutaneous drainage. Input from Dr. De Dios greatly appreciated. Input from Dr. Fraga greatly appreciated. His prognosis remains grim. 2. Depression. Continue Zoloft 100 mg p.o. daily. 3. Prophylaxis. Continue Protonix for GI prophylaxis. DVT prophylaxis is not indicated as the patient is ambulatory. CODE STATUS: Full code. Rajinder Medrano MD MTDJoe
--- NOTE | 2018-03-13 10:19 | CP.PCM.PN ---
Subjective - Date & Time of Evaluation Date of Evaluation: 03/13/18 Time of Evaluation: 10:16 - Subjective Subjective: Gastroenterology Fellow/PGY5 Progress Note Patient notes mild abdominal discomfort. Tolerating diet. No bowel movement yesterday or today by time of evaluation. Nursing notes no acute events overnight. Objective - Vital Signs/Intake and Output Vital Signs (last 24 hours): Temp Pulse Resp BP Pulse Ox 98 F 54 L 20 129/83 108 H 03/13/18 01:00 03/13/18 01:00 03/13/18 01:00 03/13/18 01:00 03/13/18 01:00 - Medications Medications: Current Medications Sodium Chloride (Sodium Chloride 0.9%) 1,000 mls @ 100 mls/hr IV .Q10H REPLACED BY [facility] Last Admin: 03/12/18 00:57 Dose: 100 mls/hr Pantoprazole Sodium (Protonix Ec Tab) 40 mg PO 0600 REPLACED BY [facility] Last Admin: 03/13/18 05:29 Dose: Not Given Sertraline HCl (Zoloft) 100 mg PO DAILY REPLACED BY [facility] Last Admin: 03/12/18 10:09 Dose: Not Given - Labs Labs: 03/13/18 06:15 03/13/18 06:15 PT 12.1 SECONDS (9.4-12.5) 03/13/18 06:15 INR 1.05 (0.93-1.08) 03/13/18 06:15 APTT 27.4 Seconds (25.1-36.5) 03/11/18 10:40
[2018-03-13] MEDS ORDERED: Iohexol 240 (50 ml) ONE ×2 (10:46→17:29)
[2018-03-13] MEDS ORDERED: Indomethacin 50 MG Suppository PR ONE (10:48)
--- NOTE | 2018-03-13 11:12 | PN ---
DATE: 03/13/2018 SUBJECTIVE: The patient is lying in bed. He continues to complain of pruritus. He is deeply jaundiced. He denies any fevers, chills or abdominal pain. He does admit to some right flank discomfort. PHYSICAL EXAMINATION: VITAL SIGNS: Reveal temperature of 98, blood pressure 129/83, heart rate of 54. HEENT: Reveals sclerae to be icteric. Conjunctivae pale. NECK: Supple. CHEST: Reveals lungs to be clear. HEART: Reveals a regular rate and rhythm. ABDOMEN: Soft, nontender. No mass. EXTREMITIES: Show no edema. LABORATORY DATAL Reveals white blood cell count 7.1, hemoglobin 11.1. Chemistries reveal total bilirubin of 18.2, AST 122, ALT 222, alkaline phosphatase of 435. IMPRESSION: Obstructive jaundice with an obstructing lesion at the junction of the right and left common hepatic ducts near the area of the cystic duct takeoff. Rule out primary cholangiocarcinoma versus extrinsic compression from lymphadenopathy and/or randy hepatis mass. RECOMMENDATIONS: The patient is to have ERCP today with hopeful biliary stent placement for drainage by Dr. Montgomery. Kb De Dios MD
[2018-03-13] MEDS ORDERED: Propofol 10 mg/ml Inj (20 ML) ONE (14:49)
[2018-03-13] MEDS ORDERED: Midazolam 2 MG/2 ML VIAL ONE (14:50)
[2018-03-13] MEDS ORDERED: Etomidate 20 mg/10ml Inj IV ONE (14:50)
[2018-03-13] MEDS: cefTRIAXone (Rocephin) 1 gm Inj ONE ×2 (14:55→19:52)
[2018-03-13] MEDS: Morphine 4 mg/ml ISec IVP PRN ×2 (19:51→23:21)
[2018-03-13] MEDS: cefTRIAXone 1 gm 1 GM/100 ML BAG IVPB SCH (21:21)
[2018-03-14] MEDS: Pantoprazole 40 mg EC Tab PO SCH (05:17)
[2018-03-14 06:58] LABS: BASO # 0.02 K/mm3 (0.0-2.0); BASO % 0.2 % (0.0-3.0); EOS # 0.2 (0.0-0.7); GRAN # 7.16 (1.4-6.5); GRAN % 79.8 % (50.0-68.0); HEMOGLOBIN 11.3 g/dL (14.0-18.0); LYMPH % 11.6 % (22.0-35.0); MEAN CELL VOLUME 85.4 fl (80.0-105.0); MEAN CORPUSCULAR HGB CONC 33.9 g/dl (31.0-37.0); MEAN PLATELET VOLUME 11.8 fl (7.0-11.0); MONO # 0.6 (0.1-0.6); MONO % 6.4 % (1.0-6.0); RBC 3.9 10^6/uL (3.5-6.1); RED CELL DISTRIBUTION WIDTH 17.5 % (11.5-14.5)
[2018-03-14 07:02] LABS: ALT/SGPT 192 U/L (7-56); AST/SGOT 111 U/L (17-59); BLOOD UREA NITROGEN 18 mg/dL (7-21); CALCIUM 8.8 mg/dL (8.4-10.5); GFR AFRICAN-AMERICAN > 60; GFR NON-AFRICAN AMERICAN 58
[2018-03-14 07:41] LABS: ALB/GLOB RATIO 1.1 (1.1-1.8); ALBUMIN 3.4 g/dL (3.0-4.8)
[2018-03-14] MEDS: Morphine 4 mg/ml ISec IVP PRN (09:08)
[2018-03-14] MEDS: cefTRIAXone 1 gm 1 GM/100 ML BAG IVPB SCH (09:08)
[2018-03-14] MEDS ORDERED: cefTRIAXone 1 gm 1 GM/100 ML BAG IVPB SCH (10:00)
[2018-03-14] MEDS ORDERED: POLYETHYLENE GLYCOL 3350 17 GM/Dose PACKET PO SCH (10:00)
--- NOTE | 2018-03-14 10:08 | CP.PCM.PN ---
Subjective - Date & Time of Evaluation Date of Evaluation: 03/14/18 Time of Evaluation: 10:07 Objective - Vital Signs/Intake and Output Vital Signs (last 24 hours): Temp Pulse Resp BP Pulse Ox 97.8 F 61 20 138/75 99 03/14/18 07:00 03/14/18 07:00 03/14/18 07:00 03/14/18 07:00 03/14/18 07:00 Intake and Output: 03/14/18 03/14/18 06:59 18:59 Intake Total 240 Balance 240 - Medications Medications: Current Medications Sodium Chloride (Sodium Chloride 0.9%) 1,000 mls @ 100 mls/hr IV .Q10H [facility] Last Admin: 03/12/18 00:57 Dose: 100 mls/hr Ceftriaxone Sodium (Rocephin 1 Gram Ivpb) 1 gm in 100 mls @ 100 mls/hr IVPB DAILY [facility] PRN Reason: Protocol Last Admin: 03/14/18 09:08 Dose: 100 mls/hr Sodium Chloride (Sodium Chloride 0.9%) 1,000 mls @ 100 mls/hr IV .Q10H [facility] Morphine Sulfate (Morphine) 4 mg IVP Q4H PRN PRN Reason: Pain, severe (8-10) Last Admin: 03/14/18 09:08 Dose: 4 mg Ondansetron HCl (Zofran Inj) 4 mg IVP Q4H PRN PRN Reason: Nausea/Vomiting Last Admin: 03/13/18 23:21 Dose: 4 mg Pantoprazole Sodium (Protonix Ec Tab) 40 mg PO 0600 [facility] Last Admin: 03/14/18 05:17 Dose: 40 mg Polyethylene Glycol (Miralax) 17 gm PO DAILY [facility] Last Admin: 03/14/18 09:10 Dose: 17 gm Sertraline HCl (Zoloft) 100 mg PO DAILY [facility] Last Admin: 03/14/18 09:08 Dose: 100 mg - Labs Labs: 03/14/18 06:15 03/14/18 06:15 PT 12.1 SECONDS (9.4-12.5) 03/13/18 06:15 INR 1.05 (0.93-1.08) 03/13/18 06:15 APTT 27.4 Seconds (25.1-36.5) 03/11/18 10:40
--- NOTE | 2018-03-14 10:45 | CP.PCM.PN ---
<Rylie Kumare - Last Filed: 03/14/18 10:40> Subjective - Date & Time of Evaluation Date of Evaluation: 03/14/18 Time of Evaluation: 10:40 - Subjective Subjective: Gastroenterology Fellow/PGY5 Progress Note Patient notes mild epigastric discomfort, pain scale 4/10. Tolerated clear liquid diet. No bowel movement in two days. No acute events overnight. Objective - Vital Signs/Intake and Output Vital Signs (last 24 hours): Temp Pulse Resp BP Pulse Ox 97.8 F 61 20 138/75 99 03/14/18 07:00 03/14/18 07:00 03/14/18 07:00 03/14/18 07:00 03/14/18 07:00 Intake and Output: 03/14/18 03/14/18 06:59 18:59 Intake Total 240 Balance 240 - Medications Medications: Current Medications Sodium Chloride (Sodium Chloride 0.9%) 1,000 mls @ 100 mls/hr IV .Q10H [facility] Last Admin: 03/12/18 00:57 Dose: 100 mls/hr Ceftriaxone Sodium (Rocephin 1 Gram Ivpb) 1 gm in 100 mls @ 100 mls/hr IVPB DAILY [facility] PRN Reason: Protocol Last Admin: 03/14/18 09:08 Dose: 100 mls/hr Sodium Chloride (Sodium Chloride 0.9%) 1,000 mls @ 100 mls/hr IV .Q10H [facility] Morphine Sulfate (Morphine) 4 mg IVP Q4H PRN PRN Reason: Pain, severe (8-10) Last Admin: 03/14/18 09:08 Dose: 4 mg Ondansetron HCl (Zofran Inj) 4 mg IVP Q4H PRN PRN Reason: Nausea/Vomiting Last Admin: 03/13/18 23:21 Dose: 4 mg Pantoprazole Sodium (Protonix Ec Tab) 40 mg PO 0600 [facility] Last Admin: 03/14/18 05:17 Dose: 40 mg Polyethylene Glycol (Miralax) 17 gm PO DAILY [facility] Last Admin: 03/14/18 09:10 Dose: 17 gm Sertraline HCl (Zoloft) 100 mg PO DAILY [facility] Last Admin: 03/14/18 09:08 Dose: 100 mg - Labs Labs: 03/14/18 06:15 03/14/18 06:15 PT 12.1 SECONDS (9.4-12.5) 03/13/18 06:15 INR 1.05 (0.93-1.08) 03/13/18 06:15 APTT 27.4 Seconds (25.1-36.5) 03/11/18 10:40 - Constitutional Appears: Non-toxic, No Acute Distress - Head Exam Head Exam: ATRAUMATIC, NORMOCEPHALIC - Eye Exam Eye Exam: EOMI, PERRL, Scleral icterus Pupil Exam: PERRL. absent: Miosis, Mydriatic - ENT Exam ENT Exam: Mucous Membranes Moist, Normal Oropharynx - Neck Exam Neck Exam: Full ROM, Normal Inspection - Respiratory Exam Respiratory Exam: Clear to Ausculation Bilateral. absent: Rhonchi, Wheezes, Respiratory Distress - Cardiovascular Exam Cardiovascular Exam: RRR, +S1, +S2. absent: Gallop, Rubs - GI/Abdominal Exam GI & Abdominal Exam: Soft, Tenderness, Normal Bowel Sounds. absent: Distended, Firm, Guarding, Rigid, Organomegaly, Rebound Additional comments: mild epigastric discomfort - Extremities Exam Extremities Exam: Full ROM. 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 Active treatment of obstructive jaundice 2/2 common hepatic duct and cystic duct strictures POD1 (03/13/18) EUS with ERCP showing CHD and cystic duct malignant appearing strictures s /p FNB of CHD stricture, sphincterotomy, cholangioscopy (spyglass) with CHD and cystic duct biopsies, and 10mm x 6mm fully covered metal stent placement. Plan: -no signs of post-ERCP pancreatitis -continue broad-spectrum antibiotics for 5 days -await pathology results -Oncology following -advanced to regular diet as tolerated -follow LFT trend, POD1 (03/13/18) stent placement allowing biliary drainage <Qasim Chong - Last Filed: 03/14/18 12:12> Objective - Vital Signs/Intake and Output Vital Signs (last 24 hours): Temp Pulse Resp BP Pulse Ox 97.8 F 61 20 138/75 99 03/14/18 07:00 03/14/18 07:00 03/14/18 07:00 03/14/18 07:00 03/14/18 07:00 Intake and Output: 03/14/18 03/14/18 06:59 18:59 Intake Total 240 Balance 240 - Medications Medications: Current Medications Sodium Chloride (Sodium Chloride 0.9%) 1,000 mls @ 100 mls/hr IV .Q10H [facility] Last Admin: 03/12/18 00:57 Dose: 100 mls/hr Ceftriaxone Sodium (Rocephin 1 Gram Ivpb) 1 gm in 100 mls @ 100 mls/hr IVPB DAILY [facility] PRN Reason: Protocol Last Admin: 03/14/18 09:08 Dose: 100 mls/hr Sodium Chloride (Sodium Chloride 0.9%) 1,000 mls @ 100 mls/hr IV .Q10H [facility] Morphine Sulfate (Morphine) 4 mg IVP Q4H PRN PRN Reason: Pain, severe (8-10) Last Admin: 03/14/18 09:08 Dose: 4 mg Ondansetron HCl (Zofran Inj) 4 mg IVP Q4H PRN PRN Reason: Nausea/Vomiting Last Admin: 03/13/18 23:21 Dose: 4 mg Pantoprazole Sodium (Protonix Ec Tab) 40 mg PO 0600 [facility] Last Admin: 03/14/18 05:17 Dose: 40 mg Polyethylene Glycol (Miralax) 17 gm PO DAILY [facility] Last Admin: 03/14/18 09:10 Dose: 17 gm Sertraline HCl (Zoloft) 100 mg PO DAILY [facility] Last Admin: 03/14/18 09:08 Dose: 100 mg - Labs Labs: 03/14/18 06:15 03/14/18 06:15 PT 12.1 SECONDS (9.4-12.5) 03/13/18 06:15 INR 1.05 (0.93-1.08) 03/13/18 06:15 APTT 27.4 Seconds (25.1-36.5) 03/11/18 10:40 Attending/Attestation - Attestation I have personally seen and examined this patient.: Yes I have fully participated in the care of the patient.: Yes I have reviewed all pertinent clinical information, including history, physical exam and plan: Yes Notes (Text): 03/14/18 12:08 I have seen and examined patient with GI fellow. No acute events overnight, he is seen sitting in chair next to bed. He reports vague abdominal pain but denies nausea, vomiting, fever/chills. Tolerating PO diet without difficulty. Review of vitals from today are normal. History of mucinous adenocarcinoma, unknown primary Jaundice s/p ERCP/spyglass yesterday showing suspected malignant appearing biliary strictures s/p FNB and placement of metal stent - Diet as tolerated - Bilirubin remains elevated today, continue to monitor - Continue with antibiotic therapy to complete 7 day course - Awaiting ERCP biopsy results - Follow up oncology recommendations - Further plan as per primary GI team (Dr. De Dios). Discussed with Dr. Montgomery, no further planned advanced endoscopic procedures, will sign off case. Patient will require close follow up after hospital discharge. Please reconsult as necessary, thank you.
--- NOTE | 2018-03-14 11:10 | PN ---
DATE: 03/14/2018 LOCATION: The patient is currently in room 565, bed 1. SUBJECTIVE: He is sitting up in the chair with no complaints. There have been no acute events overnight. The patient did have an ERCP performed yesterday. PHYSICAL EXAMINATION: VITAL SIGNS: Temperature of 97.8, blood pressure 138/75, respiratory rate of 20m O2 saturation camille 99%. HEENT: PERRLA. EOMI. The sclerae is icteric. NECK: Supple without bruits or adenopathy. LUNGS: Clear bilaterally. HEART: Regular rate and rhythm. ABDOMEN: Benign. NEUROLOGIC: There are no focal deficits. LABORATORY VALUES: WBC is 9, hemoglobin and hematocrit of 11.3 and 33.3. Chemistry, random glucose of 120, total bilirubin is 18.1 which is a point down from yesterday. AST 111, ALT 192, alkaline phosphatase of 414. The patient was stented and biopsied during the ERCP. Pathology results are currently pending. CURRENT DIAGNOSES: 1, Hyperbilirubinemia. 2. Jaundice. 3. Carcinomatosis. José Medrano MD
--- NOTE | 2018-03-14 11:36 | RAD ---
PROCEDURE: ERCP HISTORY: CBD OBST / SPYGLASS COMPARISON: None TECHNIQUE: Standard protocol for this study/examination. FINDINGS: Total fluoroscopic time (continuous mode) utilized during the procedure 196.3 (seconds). Total exam DLP: (mGy) 38.46 IMPRESSION: Submitted images from the current procedure: 4.0
[2018-03-14] MEDS: Sodium Chloride 0.9% 1,000 ML IV SCH ×2 (14:07→14:08)
--- NOTE | 2018-03-14 16:56 | PN ---
DATE: 03/14/2018 SUBJECTIVE: Mr. Magdy Martin underwent ERCP today, bilirubin is 18. Clinically, he looks less jaundiced. Liver enzymes have declined. AST 122, now 111. ALT 222, now 192. Complaining of constipation. No pain. Loss of appetite. No nausea. No vomiting. PHYSICAL EXAMINATION: GENERAL: Comfortable in bed, in no acute distress. VITAL SIGNS: Temperature 97.8, blood pressure 138/75, heart rate 96 per minute, respiratory rate 20 per minute, oxygen saturation 99% on room air. HEENT: Pallor positive. Jaundiced. Sclerae icteric. NECK: No lymphadenopathy. CHEST: Air entry present and equal bilaterally. No added sounds. CARDIOVASCULAR: S1 and S2 normal. No murmur. No gallop. ABDOMEN: Soft, nontender. No hepatosplenomegaly. EXTREMITIES: No edema. CENTRAL NERVOUS SYSTEM: Alert and oriented x3. No focal sensory or motor deficits. MEDICATIONS: Morphine 4 mg every 4 hours p.r.n., Zofran 4 mg IV every 4 hours p.r.n., Protonix 40 mg daily, MiraLax 17 g p.o. daily, Zoloft 100 mg daily, and IV fluids at 100 mL an hour. LABORATORY DATA: White count 9000, hemoglobin 11.3, hematocrit 33, platelets 278. Sodium 137, potassium 4.1, calcium 8.8. Bilirubin 18, AST 111, ALT 192, alkaline phosphatase 414. Bilirubin large on UA. Coags normal. ASSESSMENT: 1. Adenocarcinoma, unknown primary. 2. Status post endoscopic retrograde cholangiopancreatography for intrahepatic biliary dilatation. 3. Jaundice. 4. Ascites. 5. Depression. PLAN: He has adenocarcinoma, unknown primary, clinically looks like cholangiocarcinoma. Biopsy from the biliary tract done yesterday, pathology pending. Discussed with Dr. Holbrook. Reports will be back early next week. I advised her to do send tissue for MSI, Her-[address] . [address] spoke to Dr[address] Walls for right ureteral stricture, likely due to external compression from the pelvic mets, likely originating in peritoneum. They are bulky in nature as reviewed with Dr. Ambrosio, on CAT scan of the abdomen. Ureteric stent scheduled for Saturday. Discussed with Dr. Freddy Chiu. He will coordinate the port placement also on Saturday. I had a lengthy discussion with the family; Mr. Martin' parents were there, brother, [id number], and . Discussed the imaging results, probable high probability of cholangiocarcinoma diagnosis, and explained the peritoneal metastatic lesions. Discussed the workup. Treatment options : chemotherapy. He is not a candidate for radiation as there is no discrete mass in the biliary tract. They had a lot of questions, answered all their questions to their satisfaction. Lactulose 15 mL ordered to be given stat. We will continue IV fluids, monitor LFTs closely. Discussed with Dr. Medrano. Thank you, Dr. Medrano, for allowing us to participate in Mr. Martin' care. Sybil Fraga MD MTDJoe
[2018-03-15] MEDS: Sodium Chloride 0.9% 1,000 ML IV SCH ×2 (05:32→09:37)
[2018-03-15] MEDS: Pantoprazole 40 mg EC Tab PO SCH (05:33)
[2018-03-15 07:27] LABS: BASO # 0.01 K/mm3 (0.0-2.0); BASO % 0.1 % (0.0-3.0); EOS # 0.3 (0.0-0.7); EOS % 2.9 % (1.5-5.0); GRAN # 9.11 (1.4-6.5); GRAN % 78.3 % (50.0-68.0); HEMOGLOBIN 11.5 g/dL (14.0-18.0); LYMPH # 1.2 (1.2-3.4); LYMPH % 10.6 % (22.0-35.0); MEAN CELL VOLUME 85.9 fl (80.0-105.0); MEAN CORPUSCULAR HEMOGLOBIN 30.1 pg (25.0-35.0); MEAN CORPUSCULAR HGB CONC 35.1 g/dl (31.0-37.0); MEAN PLATELET VOLUME 12.3 fl (7.0-11.0); MONO # 0.9 (0.1-0.6); MONO % 8.1 % (1.0-6.0); RBC 3.82 10^6/uL (3.5-6.1); RED CELL DISTRIBUTION WIDTH 17.8 % (11.5-14.5); WHITE BLOOD COUNT 11.6 10^3/ul (4.5-11.0)
[2018-03-15 07:48] LABS: ALB/GLOB RATIO 1.1 (1.1-1.8); ALBUMIN 3.4 g/dL (3.0-4.8); ALT/SGPT 154 U/L (7-56); AST/SGOT 68 U/L (17-59); BLOOD UREA NITROGEN 13 mg/dL (7-21); CALCIUM 8.8 mg/dL (8.4-10.5); GFR AFRICAN-AMERICAN > 60; GFR NON-AFRICAN AMERICAN > 60
--- NOTE | 2018-03-15 08:25 | PN ---
DATE: 03/15/2018 SUBJECTIVE: The patient is lying in bed comfortable. He is day 2 status post ERCP with bare metal stent placement across an obstructing common hepatic duct mass. He has not had a bowel movement in several days. He states that his urine is becoming ortho nurse. PHYSICAL EXAMINATION: VITAL SIGNS: Reveal temperature of 97.8, blood pressure 138/75, heart rate of 61. The patient remains deeply jaundiced. HEENT: Reveals sclerae to be icteric. Conjunctivae pink. NECK: Supple. CHEST: Lungs are clear. HEART: Reveals regular rate and rhythm. ABDOMEN: Soft, nontender. EXTREMITIES: Show no edema. LABORATORY DATA: No new laboratory data are available. IMPRESSION: Obstructive jaundice from common hepatic duct mass, which is also obstructing the cystic duct, most likely a cholangiocarcinoma. He is feeling better. He has not had any signs of cholangitis. RECOMMENDATIONS: 1. We will increase his MiraLax to 17 g three times a day. 2. If the patient's bilirubin is declining, he can be discharged home with oral antibiotics for another 3-4 days. He can be started on Cipro 500 mg twice a day for the 3-4 days and he can follow up as an outpatient on the biopsies which were performed on the ERCP. Kb De Dios MD
[2018-03-15] MEDS: POLYETHYLENE GLYCOL 3350 17 GM/Dose PACKET PO SCH ×3 (09:11→17:18)
--- NOTE | 2018-03-15 10:59 | PN ---
SUBJECTIVE: The patient was seen and examined at bedside on the general medical lao. No acute events overnight. He remains afebrile and hemodynamically stable. He reports improvement in his skin discoloration as well as his pruritus and overall offers no complaints. OBJECTIVE: VITAL SIGNS: Temperature 97.9, pulse 59, blood pressure 143/83, respiratory rate 20, oxygen saturation 98% on room air. GENERAL: Jaundiced man sitting up in his chair, in no apparent distress. HEENT: PERRL. EOMI. Sclerae are icteric. No conjunctival pallor. NECK: No lymphadenopathy. No bruits. LUNGS: Clear to auscultation. CARDIOVASCULAR: Regular rate and rhythm. Normal S1 and S2. No murmurs, rubs or gallops. ABDOMEN: Normoactive bowel sounds. Soft, nontender, minimally distended. No rigidity. EXTREMITIES: No edema. NEUROLOGIC: Awake, alert, and oriented x 3. No focal motor deficits. LABORATORY DATA: WBC 11.6 with 78% neutrophils, hemoglobin 11.5, hematocrit 33, platelets 290. Chemistry reviewed and unremarkable. T bili is 12.8, AST 68, ALT 154, alkaline phosphatase 411. ASSESSMENT: The patient is a 53 year old man with newly diagnosed metastatic mucinous adenocarcinoma to the omentum of unknown primary who was sent to the ED for management of progressively worsening hyperbilirubinemia who is now s/p ERCP with stent placement across an obstructing common hepatic duct mass. PLAN: 1. Metastatic mucinous adenocarcinoma of unknown primary with obstructive jaundice secondary to obstructing common hepatic duct mass s/p ERCP with stent placement. Input from Dr. Montgomery and Dr. De Dios greatly appreciated. The patient is noted to have favorably trending bilirubin levels. We will await culture reports from breast biopsy and ERCP. We will arrange a second opinion with Dr. Lino as per family request. 2. Right sided hydroureter. CT imaging reviewed and Dr. Walls of Urology has been consulted for possible stent placement. Renal function remains stable as does urinary output. Will continue to monitor I&O's and renal function daily. 3. Depression. Continue Zoloft 100 mg p.o. daily. 4. Prophylaxis. Continue Protonix for GI prophylaxis. DVT prophylaxis is not indicated as the patient is ambulatory. CODE STATUS: Full code. Rajinder Medrano MD MTDJoe
--- NOTE | 2018-03-15 12:00 | PN ---
DATE: 03/15/2018 FOLLOWUP NOTE SUBJECTIVE: He is comfortable in bed, in no acute distress. No nausea. No vomiting. Skin coloration has improved since ERCP and stent placement in the biliary tract. Bilirubin declined to 12.8 today from 18. He was complaining of constipation, given a dose of lactulose yesterday. REVIEW OF SYSTEMS: As per HPI. Rest of 12-point review of systems reviewed negative. PHYSICAL EXAMINATION: GENERAL: Comfortable in bed, in no acute distress. VITAL SIGNS: Temperature 97.8, heart rate 80 per minute, blood pressure 130/80, respiratory rate 18 per minute, oxygen saturation 98% on room air. HEENT: Pallor positive. Icterus positive. NECK: No lymphadenopathy. CHEST: Air entry present and equal bilateral. No added sound. CARDIOVASCULAR: S1 and S2 normal. No murmur. No gallop. ABDOMEN: Soft, nontender. No hepatosplenomegaly. Nondistended. EXTREMITY: No edema. NEUROLOGIC: Awake, alert, oriented x3. No focal sensorimotor deficits. SKIN: Icteric. SPINE: Nontender. LABORATORY DATA: White count 11.6, hemoglobin 11.5, platelet 290. Bilirubin 12.8, AST 68, ALT 154, alkaline phosphatase 411. ASSESSMENT: 1. Adenocarcinoma, unknown primary. 2. Ascites. 3. Status post ERCP- biliary stent placed. placed. 4. 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 5. Jaundice. PLAN: Bilirubin declined to 12.8 status post biliary drainage by ERCP. He is scheduled for right ureter stent placement for hydronephrosis on Saturday. Mild ascites. Pathology awaited from ERCP. We will continue GI prophylaxis. Port placement will be scheduled. Thank you, Dr. Medrano for allowing us to participate in Mr. Martin's care. Sybil Fraga MD [facility]
[2018-03-16] MEDS: Sodium Chloride 0.9% 1,000 ML IV SCH ×2 (04:56→14:51)
[2018-03-16] MEDS: Pantoprazole 40 mg EC Tab PO SCH (05:57)
--- NOTE | 2018-03-16 06:25 | CON ---
DATE: 03/15/2018 ONCOLOGY CONSULTATION NOTE LOCATION: The patient is currently in Room 565, bed 1. REQUESTED BY: The patient's family and family doctor, Dr. Rajinder Medrano for second opinion consultation and management. 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 Kelly after the patient's labs demonstrated rising bilirubin up to 16. The patient was initially seen in the PMD's office on 02/18/2018 for evaluation of nausea, vomiting and inability to keep anything orally. The patient was found at that time to be jaundiced and icteric, but was unremarkable. He had a CAT scan of the abdomen and pelvis which was done with pancreatic protocol and the CAT scan revealed significant findings pertaining to the intrahepatic ducts. The patient had performed dilatation of the intrahepatic biliary radicle. Common bile duct appeared to be dilated. Point of obstruction appeared to be the confluence of the common bile duct and the cystic duct. No masses per say was identified, favors the diagnosis of cholangiocarcinoma rather than suspected pancreatic neoplasm. The patient had patent portal venous system, intrahepatic common portal veins and splenic veins were patent. Gallbladder appeared to be unremarkable. Pancreas showed no gross lesion or ductal dilatation and there were no other significant findings in the pancreas. There was marked right-sided hydronephrosis and hydroureter and the ureteral area was dilated to the point of the iliac crest at the pelvic rim. Appendix appeared to be normal. There was evidence of diffuse peritoneal carcinomatosis with bulky tumor in the upper abdomen. There was moderate volume intraabdominal and pelvic ascites and there was loculated ascites in the pelvis anteriorly interposed between the peritoneal reflection in the anterolateral wall of the urinary bladder. Additional tumor deposits were seen deep in the pelvis. The patient subsequent to this, had a CT-guided biopsy done by Dr. Freddy Chiu on 02/26/2018 and pathology confirmed it to be metastatic mucinous adenocarcinoma and was sent to [facility] which was favoring tumor of colonic origin based upon the immunohistochemistry testing. antigens that were tested were as follows: AE1 to AE3 were positive, CK20 was positive. CEA-R was positive, CA 19-9 was positive, CDX2 was positive. CK-17 was negative which is usually seen in hepatobiliary neoplasms. The patient subsequent to that was referred to Dr. De Dios for GI evaluation and undergone EGD and colonoscopy, both of which were unremarkable. The patient had a PET CT scan done subsequently which was done also around about the same time on 03/11/[address] showed apparent moderate intrahepatic biliary duct dilatation that appears to be increased diffuse FDG activity within the hepatic parenchyma to rule out hepatic cellular dysfunction with delayed excretion, cholangiocarcinoma should be considered. There was a morphous activity within the mid aspect of the abdomen also represented FDG excretion within the bowel that is centrally depressed or compressed by the ascites. There was also abnormal FDG activity within the adjacent omentum suggestive of omental metastasis. Abdomen and pelvic ascites was also noted on the CT portion of the PET CT. There were no definitely identifiable FDG with masses in the chest or in the rest of the abdominal cavity though there was evidence of pelvic and abdominal ascites. In addition to this, there was consistently noted evidence of significant right hydronephrosis with diminished excretion of the right side and evidence on the pancreatic protocol CT as well. The patient also had an MRCP of the abdomen with and without contrast at about the same time which showed severe intrahepatic ductal dilatation. The dilatation of the hepatic duct is just above the level of the cystic duct measuring 13 mm in diameter. The abrupt cutoff with nonvisualization of the common duct below this level without any identifiable mass best seen on images 19, series 7. Subsequent to this, the patient has undergone endoscopy, pancreatoduodenography and the patient underwent ERCP and subsequent to this, had actually a stent placed in, done by Dr. Montgomery which was done on 03/13/2018. On the ERCP study, the patient after initial dilatations and sphincterotomy, the patient had a dye study done and the contrast extended to the cystic duct, extended to the gallbladder and extended to the bifurcation. Contrast was also seen in the hepatic duct. The hepatic duct bifurcation left and right hepatic duct and all the intrahepatic branches were superficially dilated and diffusely dilated. Largest diameter was 15 mm. Common hepatic duct contains a single severe stenosis measuring 10 mm in length. The lower third of the common bile duct and middle third of the main bile duct were normal. Biliary sphincterotomy was extended to a total of 7 mm in length with sphincterotome electrocautery. The patient then had a SPY graft probe which was advanced to the bifurcation and several brushings were done of the affected strictured area to see if any pathology would be available and that is still pending at this time. Subjectively, the patient told me that he is still feeling very weak, no appetite. Has significant burping and belching and heartburn. He has not had a bowel movement for the last several days. Very poor appetite and sense of taste has been affected. PAST MEDICAL HISTORY: Significant for depression. The patient works as a barron. Does not have any significant exposure to any known chemical at this point in time that he can recall. The patient also had history of depression and is on Zoloft. He is currently on Protonix as well for his reflux and GERD. PAST SURGICAL HISTORY: Significant for debridement for MRSA infection in the lower extremities. ALLERGIES: HE HAS NO KNOWN ALLERGIES. SOCIAL HISTORY: The patient is a former smoker, 30-pack year smoking and quit smoking about 15 years ago. Uses social alcohol and does have a history of cocaine exposure in the past. The patient is and lives with his and his is at the bedside with whom I had a detailed discussion. REVIEW OF SYSTEMS: In the review of systems, the patient tells me that since October, the patient used to be working out and he showed me images of where he had a well developed body. He has lost a lot of muscle mass and his skin is actually becoming lax and he has lost lot of subcutaneous fat. The patient tells me that he has no appetite for meat and that food does not taste the same as it used to be before. The patient has noticed that more recently, since he became jaundiced, stool has become lemus colored and his urine has been very dark. The patient does not have any significant pain though he had significant itching at the time when he came into the hospital with the obstructive jaundice. PHYSICAL EXAMINATION GENERAL: The patient is examined, sitting out of bed in the chair. The patient is in no acute distress. The patient is VITAL SIGNS: The patient is afebrile, T-max is 98.4, pulse is 66, blood pressure is 141/88, respirations 18,O2 saturation is 99% on room air. HEENT: Head is normocephalic and atraumatic. Conjunctivae pale. Examination of the oropharynx reveals tongue to be moist. No ulcerations are noted. No evidence of any fungal infection. NECK: Supple. There is no adenopathy. No jugular venous distention noted. LUNGS: Clear to percussion and auscultation. CARDIOVASCULAR SYSTEM: Examination of the cardiovascular system reveals PMI to be in the fifth intercostal space, inside the midclavicular line. S1 and S2 are normal. No gallop or murmurs heard. ABDOMEN: Soft and nontender, mildly distended. No rebound, rigidity or guarding is noted. No palpable masses are noted. EXTREMITIES: No cyanosis, clubbing, or edema is noted. NEUROLOGIC: Higher functions are normal. No focal deficits are noted. GENITOURINARY/RECTAL: Deferred. SKIN: Skin turgor is decreased. No skin lesions are noted. The patient is obviously icteric. LABORATORY DATA: Laboratory data was reviewed. Today's labs reveals white count of 11.6, hemoglobin 11.5, hematocrit 32.5 with platelet count of 290,000. Chemistries reveal grossly normal chemistries. Random sugar is 115. Total bilirubin from 17 has dropped down to 12.8. AST is 68, which is dropping from 137. AST is also coming down from 261 and is down to 154. Alkaline phosphatase which was 460 has come down to 411. Total protein is 6.5 and albumin of 3.4. Coags are within normal limits. MEDICATIONS: Patient's medications were reviewed. He is on Cipro p.o. 500 mg every 12 hours, he is on MiraLax 17 g 3 times daily, morphine 4 mg every 4 hours p.r.n., Protonix 40 mg daily and IV fluids at 100 mL/hour. He is on Zofran 4 mg IV every 4 hours p.r.n. for nausea. He is on Zoloft 100 mg daily for his depression. 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 Despite the fact that the immunohistochemistry is suggestive of colorectal origin, a clinical picture is highly suggestive of cholangiocarcinoma clinically and at least x-ray and radiographically. The patient has by definition at this point in time, stage IV disease. The patient has significant right hydronephrosis and this may need to be addressed with urologic intervention including placement of a stent into the right ureter if feasible after a cysto and a retrograde review of the right ureter. I had a detailed discussion with the patient and the family. I reviewed all the pictures with them. I had a detailed discussion with them showing them where the omental caking is and what this is all reflective about, showed them where the sites of cholangiocarcinoma can originate from and what the causative factors could be. Time spent with the patient was more than 90 minutes. My recommendation at this time for the family before proceeding with chemotherapy which would be the obvious choice would be to sent the tumor specimen to [facility] for next generation gene sequencing to look for at least to 200 actionable genes and this might give us a clue as to what genes are over expressed in this particular tumor and we could also have some ideas to what the actionable genes may allow us to chose what specific actionable drugs including for example, in some cholangiocarcinomas, small molecular inhibitors such as erlotinib may be active. Newer drugs which are directed against FDGF inhibitors also are available to trial. So, I told the patient that the easiest thing while we are waiting for the bilirubin to come down after the stent has been placed would be to sent the tumor tissue to [facility] for these actionable genes. Standard chemotherapy that is available for either tumors of unknown origin or in this particular case, what appears to be clinically cholangiocarcinoma would be an oxaliplatin-based regimen with gemcitabine that would be a good combination for this patient to be started on plus minus 5-FU. The patient tells me that he has already been placed for a port, I said to go ahead with it. In the meantime, the patient is still symptomatic from his bowel point of view, so we will wait to see how he feels as far as his bowel movements are concerned over the next 48 to 72 hours. He was interested in noting and asking me whether he will be a candidate for Marinol or marijuana-based treatment to increase his appetite and sense of well being. I told him that those are options we can discuss once we have identified a set of treatment plan for him. I tried to be optimistic despite the presentation and the extent of the disease at this point in time. Family and the patient himself, particularly are very objective and at this point in time want everything done that is feasible for management of the cancer. I told him the options would include getting an opinion from a tertiary center when we have all the other data available to us, so that no stone will be left unturned. I will speak to Urology as well about placement of the stent because that would be also important and crucial to us if we are planning to give him chemotherapy or any other treatment so that kidney functions are maintained as well as maintaining kidney and liver function. Unfortunately, total bilirubin has to come down to at least 2.4 before instituting some of the other drugs which are hepatically excreted. That includes gemcitabine and that includes also oxaliplatin, though, we can cautiously administer in patients with obstructive jaundice. We will follow with you and make appropriate recommendations. We will review the pathology slides with Dr. Holbrook on Saturday and we will speak to Dr. Fraga as well. Again, please make a note, time spent with the patient was greater than 90 minutes. Thanking you for allowing me to participate in the management of this patient. Very truly yours, Asa Lino MD
[2018-03-16 07:29] LABS: BASO # 0.02 K/mm3 (0.0-2.0); BASO % 0.2 % (0.0-3.0); EOS # 0.4 (0.0-0.7); EOS % 3.4 % (1.5-5.0); GRAN # 8.66 (1.4-6.5); GRAN % 78.6 % (50.0-68.0); HEMOGLOBIN 11.2 g/dL (14.0-18.0); LYMPH # 0.9 (1.2-3.4); LYMPH % 8.4 % (22.0-35.0); MEAN CELL VOLUME 86.2 fl (80.0-105.0); MEAN CORPUSCULAR HEMOGLOBIN 29.8 pg (25.0-35.0); MEAN CORPUSCULAR HGB CONC 34.6 g/dl (31.0-37.0); MEAN PLATELET VOLUME 12.1 fl (7.0-11.0); MONO % 9.4 % (1.0-6.0); RBC 3.76 10^6/uL (3.5-6.1); RED CELL DISTRIBUTION WIDTH 17.5 % (11.5-14.5)
[2018-03-16 07:58] LABS: ALB/GLOB RATIO 1.1 (1.1-1.8); ALBUMIN 3.2 g/dL (3.0-4.8); ALT/SGPT 154 U/L (7-56); AST/SGOT 96 U/L (17-59); BLOOD UREA NITROGEN 15 mg/dL (7-21); CALCIUM 8.8 mg/dL (8.4-10.5); GFR AFRICAN-AMERICAN > 60; GFR NON-AFRICAN AMERICAN > 60
[2018-03-16] MEDS: POLYETHYLENE GLYCOL 3350 17 GM/Dose PACKET PO SCH ×3 (10:51→18:36)
--- NOTE | 2018-03-16 23:18 | PN ---
DATE: 03/16/2018 SUBJECTIVE: He is comfortable. He is walking in the hallway. Denies any shortness of breath. Skin, yellowish discoloration has improved. Bilirubin increased to 15 today, it declined to 12.8 yesterday. Denies any abdominal pain. No nausea, no vomiting. He is still complaining of constipation, received a dose of lactulose this morning and passed scant amount of stools today. REVIEW OF SYSTEMS: As per HPI. Rest of 12-point review of systems reviewed. PHYSICAL EXAMINATION: GENERAL: Comfortable in chair, in no acute distress. VITAL SIGNS: Temperature 98, heart rate 85 per minute, blood pressure 130/50, respiratory rate 15 per minute, oxygen saturation 97% on room air. HEENT: Sclerae icteric. NECK: No lymphadenopathy. CHEST: Air entry present and equal bilaterally. No added sounds. CARDIOVASCULAR: S1 and S2 normal. No murmur. No gallop. ABDOMEN: Soft, nontender. No hepatosplenomegaly. EXTREMITIES: No edema. NEUROLOGIC: Awake, alert, oriented x3. No focal sensory or motor deficits. SKIN: Icteric . SPINE: Nontender. LABORATORY DATA: White count 11, hemoglobin 11.2, hematocrit 32.4, platelet 271. Sodium 140, potassium 3.8. Total bilirubin 15.2, AST 96, ALT 154, alkaline phosphatase 446. ASSESSMENT: 1. Adenocarcinoma of unknown primary. 2. Intrahepatic biliary dilatation, status post biliary stent placed via endoscopic retrograde cholangiopancreatography. 3. Depression. 4. Right ureteral stricture leading to hydronephrosis. PLAN: Bilirubin increased to 15.2 today. We will continue to monitor a.m. labs ordered for Saturday. We will consider ultrasound of the liver on Saturday after ureteric stent placement, he is scheduled for right ureteric stent placement due to hydronephrosis likely related to peritoneal mass compressing on the right ureter at the ureterovesical junction. Hemoglobin and hematocrit stable. He is very depressed. He said he does not want to talk about the cancer treatment. He is currently on Zoloft 100 mg daily for depression. Discussed with Dr. Chong about slow decline in bilirubin. He stated that he might have multiple strictures and it might take up to 1 week to see any meaningful decline in bilirubin. Thank you, Dr. Medrano, for allowing us to participate in Mr. Martin's care. Discussed with the telephonically. Sybil Fraga MD [facility]
[2018-03-17] MEDS: Pantoprazole 40 mg EC Tab PO SCH (05:25)
[2018-03-17 06:59] LABS: BASO # 0.05 K/mm3 (0.0-2.0); BASO % 0.4 % (0.0-3.0); EOS # 0.9 (0.0-0.7); EOS % 7.7 % (1.5-5.0); GRAN # 8.63 (1.4-6.5); GRAN % 76.4 % (50.0-68.0); HEMOGLOBIN 11.5 g/dL (14.0-18.0); LYMPH # 1.1 (1.2-3.4); LYMPH % 9.7 % (22.0-35.0); MEAN CELL VOLUME 86.7 fl (80.0-105.0); MEAN CORPUSCULAR HEMOGLOBIN 29.5 pg (25.0-35.0); MEAN PLATELET VOLUME 12.3 fl (7.0-11.0); MONO # 0.7 (0.1-0.6); MONO % 5.8 % (1.0-6.0); RBC 3.9 10^6/uL (3.5-6.1); RED CELL DISTRIBUTION WIDTH 17.7 % (11.5-14.5); WHITE BLOOD COUNT 11.3 10^3/ul (4.5-11.0)
[2018-03-17 07:17] LABS: ALT/SGPT 178 U/L (7-56); AST/SGOT 109 U/L (17-59); BLOOD UREA NITROGEN 17 mg/dL (7-21); GFR AFRICAN-AMERICAN > 60; GFR NON-AFRICAN AMERICAN > 60
[2018-03-17 07:41] LABS: ALB/GLOB RATIO 1.2 (1.1-1.8); ALBUMIN 3.7 g/dL (3.0-4.8)
--- NOTE | 2018-03-17 08:18 | CON ---
DATE: 03/14/2018 GENITOURINARY CONSULTATION HISTORY OF PRESENT ILLNESS: This is an unfortunate 53-year-old male with newly diagnosed metastatic mucinous adenocarcinoma of the omentum. The patient presented few weeks ago with jaundice after having abdominal pain with persistent vomiting. The patient was seen by Hematology/Oncology, found to have severe hyperbilirubinemia. Apparently, a biopsy was done CT-guided by Dr. Freddy Chiu on 02/26 with a pathology report confirming metastatic mucinous adenocarcinoma favoring colorectal origin. The patient then had a GI workup, apparently no primary cancer was found. The patient was recently admitted to the hospital. He had a placement of a biliary stent done yesterday. He is seen in his room. He is feeling somewhat better, although still having abdominal pain and nausea. He is voiding without difficulty. He denies any dysuria, urinary frequency, urgency or gross hematuria. On a recent scanning, the patient was found to have a right hydronephrosis. It does appear to be chronic in nature. There is a question of a mass, which is causing the hydronephrosis. However, it is unclear based on the CT report as there is question of a mass in the body of the report, but not in the impression. consultation was requested regarding the above. PAST MEDICAL HISTORY: As per the HPI. Also depression. PAST SURGICAL HISTORY: The patient had MRSA infection with debridement of his lower extremities. MEDICATIONS: At home included Protonix and Zoloft. Currently, on MiraLAX, morphine, Protonix, Rocephin, Zofran, Zoloft. ALLERGIES: NO KNOWN DRUG ALLERGIES. FAMILY HISTORY: Noncontributory for this admission. SOCIAL HISTORY: Positive for smoking for many years, but quit about 15 years ago. Social EtOH use. REVIEW OF SYSTEMS: Positive for weakness and malaise. For GI, positive for nausea, vomiting, abdominal distention, poor appetite and jaundice. For psychiatric, positive for depression. Other systems are negative. PHYSICAL EXAMINATION: GENERAL: The patient is awake and alert. He is answering questions. He is in no acute distress. VITAL SIGNS: He is afebrile. Temperature of 97.8, pulse 61, BP 138/75, respirations 20. NECK: Supple. There is no adenopathy noted. CHEST: Reveals normal inspiratory effort. CARDIAC: Shows positive S1, S2. There is no peripheral edema noted. ABDOMEN: Soft. There is no tenderness. No rebound or guarding. There is moderate distention, possible ascitic wave. There is no costovertebral angle tenderness. GENITOURINARY: The phallus is normal. Scrotum is normal. Testes bilaterally descended, nontender, no masses. Epididymis are normal. LABORATORY DATA: WBC count 9.0, hemoglobin 11.3, platelets 278. Creatinine 1.3 with a GFR of 58, has been improving with fluids; bilirubin 18.1, AST 111, ALT 192 and alk phos of 414. Urinalysis showed large bilirubin, 0-2 rbc, 2-5 wbc, nitrites are negative, positive for protein. On radiologic exam, the patient had a CT of the pancreas done on 03/12. In the body of the report, there was noted to be profound dilatation of intrahepatic biliary radicles with dilated common bile duct, which favored cholangiocarcinoma. There is marked right-sided hydronephrosis and hydroureter. The ureter is dilated to the point of the iliac crests at the pelvic brim. Under peritoneum, it says a loculated ascites/pelvic cystic tumor identified anteriorly interposed between the peritoneal reflection in the anterolateral left wall by the urinary bladder, additional tumor deposits are seen in the deep pelvis. The bladder was unremarkable. There is no mention of this mass in the impression, but there is peritoneal carcinomatosis with moderate ascites. IMPRESSION AND PLAN: This is a 53-year-old male with ascites, jaundice and some type of adenocarcinoma in the biliary system, the primary is apparently unknown at this time. A biopsy from 02/26 showed metastatic mucinous adenocarcinoma favoring colorectal origin; however, no colorectal tumor was found on endoscopy. Plan for now will be as per Oncology. I will need to review the CT scan with Radiology and I would recommend a repeat CT scan of the abdomen and pelvis not just of the pancreas to further image the possible tumor that was seen in the pelvic brim. As for the right kidney with the hydronephrosis, we certainly could plan a cystoscopy with stent insertion. However, if there is a high-grade malignancy in the pelvis, a stent will unlikely be successful and will not last for an extended period of time. As this is usually a high-grade obstruction, I would recommend nephrostomy tube placement. The hydronephrosis appears to be longstanding. There is already parenchymal loss on the right side. I will review this again with Radiology. Stent placement is not emergent and I would plan on discussion with Hematology/Oncology first as we need to have a planned course of treatment at this time. We would recommend General Surgery intervention as well. The patient may require laparotomy and removal of the possible mass for further diagnosis and treatment purposes. Thank you for allowing me to participate the care of this patient. We will follow him with you. Sony Walls MD
[2018-03-17] MEDS ORDERED: cefTRIAXone (Rocephin) 1 gm Inj ONE (09:59)
[2018-03-17] MEDS: POLYETHYLENE GLYCOL 3350 17 GM/Dose PACKET PO SCH ×2 (09:59→15:09)
[2018-03-17] MEDS ORDERED: Lidocaine 2% Jelly (Uro-Jet) ONE ×2 (10:00→16:39)
[2018-03-17] MEDS ORDERED: Iohexol 240 (50 ml) ONE ×2 (10:00→16:39)
[2018-03-17] MEDS ORDERED: Lidocaine 2 GM Vial 2 GM/50 ML VIAL IV ONE (10:01)
--- NOTE | 2018-03-17 10:55 | PN ---
SUBJECTIVE: The patient was seen and examined at the bedside on the general medical lao. No acute events overnight. He remains afebrile and hemodynamically stable. He reports that he had a very large bowel movement yesterday and subsequent significant improvement in his abdominal discomfort. He is pending urologic evaluation with Dr. Walls for possible right-sided ureteral stent placement given significant right hydroureter. The patient has also been evaluated by Dr. Lino of Hematology/Oncology for a second opinion as per family request. Otherwise overall the patient states he feels okay and is looking forward to being discharged home. PHYSICAL EXAMINATION: VITAL SIGNS: Temperature 98.3, pulse 53, blood pressure 129/86, respiratory rate 20, oxygen saturation 99% on room air. GENERAL: Jaundiced man sitting up in his chair, in no apparent distress. HEENT: PERRL. EOMI. Sclerae are icteric. No conjunctival pallor. NECK: No lymphadenopathy. No bruits. LUNGS: Clear to auscultation. CARDIOVASCULAR: Regular rate and rhythm. Normal S1 and S2. No murmurs, rubs or gallops. ABDOMEN: Normoactive bowel sounds, soft, nontender, nondistended. No rigidity. EXTREMITIES: No edema. NEUROLOGIC: Awake, alert, and oriented x 3. No focal motor deficits. LABORATORY DATA: WBC 11.3, hemoglobin 11.5, hematocrit 34, platelets 313. Chemistry reviewed and unremarkable. T bili 14.8. AST 109, ALT 178, alkaline phosphatase 493. ASSESSMENT: The patient is a 53 year old man with newly diagnosed metastatic mucinous adenocarcinoma to the omentum of unknown primary who was sent to the ED for management of progressively worsening hyperbilirubinemia who is now s/p ERCP with stent placement across an obstructing common hepatic duct mass. PLAN: 1. Metastatic mucinous adenocarcinoma of unknown primary with obstructive jaundice secondary to obstructing common hepatic duct mass s/p ERCP with stent placement. Input from Dr. Montgomery and Dr. De Dios greatly appreciated. We will await biopsy reports from brush biopsy from ERCP. Input from Dr. Fraga and Dr. Lino appreciated. The patient said he will be seeking a third opinion at [facility] in [place]. 2. Right-sided hydroureter. Input from Dr. Walls appreciated and the patient is tentatively scheduled for stent placement later today. 3. Depression. Continue Zoloft 100 mg p.o. daily. 4. Prophylaxis. Continue Protonix for GI prophylaxis. DVT prophylaxis is not indicated as the patient is ambulatory. CODE STATUS: Full code. Rajinder Medrano MD MTDD
[2018-03-17] MEDS ORDERED: Lidocaine 2% Inj (20ml) ONE (13:37)
[2018-03-17] MEDS ORDERED: Midazolam 2 MG/2 ML VIAL ONE ×3 (14:00→17:41)
--- NOTE | 2018-03-17 14:03 | PN ---
DATE: 03/17/2018 SUBJECTIVE: The patient is walking around in his room. He denies any abdominal pain, nausea is less. He finally had a large bowel movement yesterday. He denies any rectal bleeding. PHYSICAL EXAMINATION: VITAL SIGNS: Reveal temperature of 98.3, blood pressure 129/86, heart rate of 53. HEENT: Reveal sclerae to be icteric. Conjunctivae pink. NECK: Supple. CHEST: Reveal lungs to be clear. HEART: Exam reveals regular rate and rhythm. ABDOMEN: Softly distended, nontender. No mass. EXTREMITIES: Show no edema. LABORATORY DATA: Reveal white blood cell count 11.3, hemoglobin 11.5. Chemistries reveal total bilirubin at 14.8, AST of 109, ALT of 178, alkaline phosphatase of 493. IMPRESSION: A 53-year-old male with obstructive jaundice with a mass in the common hepatic duct with omental metastasis and right hydronephrosis. The patient is status post day #4 of endoscopic retrograde cholangiopancreatography with bare metal stent placement. He is to undergo a cystoscopy with possible ureteral stent placement for right hydronephrosis. His total bilirubin is slowly trending downwards. RECOMMENDATIONS: 1. Await pathology from ERCP biopsies. 2. Await cystoscopy with possible right ureteral stent placement. His long-term prognosis is extremely poor given his advanced metastatic adenocarcinoma. Kb De Dios MD
--- NOTE | 2018-03-17 17:17 | VASCULAR ---
PROCEDURE: Ultrasound and fluoroscopic right internal jugular venous access port. CLINICAL HISTORY: Stage IV adenocarcinoma of unknown primary.Venous port for chemotherapy. PHYSICIAN(S): Freddy Chiu M.D. TECHNIQUE: The relative risks and indications of the procedure were explained to the patient and consent obtained. The patient was placed supine on the arteriogram table and the right neck and chest prepped and draped in the usual sterile fashion. Conscious sedation monitoring was provided throughout the procedure by a nurse. Antibiotics were given prior to the procedure. Under direct ultrasound guidance, the right internal jugular vein was punctured with a micro-puncture set. A 0.035 angled Glidewire was advanced into the IVC. A 4 cm incision was made below the right clavicle and the pocket blunted dissected. A 8 Ukrainian single-lumen catheter, 24 cm long, was advanced to the SVC/RA junction. The catheter was trimmed and attached to the port. The port aspirates and injects easily. The port was placed in the pocket and closed in 2 layers. The patient tolerated the procedure well. IMPRESSION: Ultrasound and fluoroscopically placed right internal jugular venous access port.
[2018-03-17] MEDS ORDERED: Propofol 10 mg/ml Inj (20 ML) ONE (17:41)
[2018-03-17] MEDS ORDERED: Morphine 2 mg/ml ISec IVP PRN (18:34)
[2018-03-17] MEDS ORDERED: Morphine 4 mg/ml ISec IVP PRN (18:38)
[2018-03-17 19:01] VITALS: O2SAT 99
--- NOTE | 2018-03-17 23:41 | CP.PCM.PN ---
Subjective - Date & Time of Evaluation Date of Evaluation: 03/17/18 Time of Evaluation: 18:00 - Subjective Subjective: He was seen in recovery room. S/P right uretric stent placement. There was a tight stricture due to external compression as per Discussion with Dr. Walls. He voided pink urine. No blood clots. Port placed . No fever, cough. Bilirubin declined slightly. Objective - Vital Signs/Intake and Output Vital Signs (last 24 hours): Temp Pulse Resp BP Pulse Ox 97.8 F 57 L 18 168/93 H 99 03/17/18 19:34 03/17/18 19:34 03/17/18 19:34 03/17/18 19:34 03/17/18 19:34 Intake and Output: 03/17/18 03/18/18 18:59 06:59 Intake Total 1000 480 Balance 1000 480 - Medications Medications: Current Medications Sodium Chloride (Sodium Chloride 0.9%) 1,000 mls @ 100 mls/hr IV .Q10H [facility] Last Admin: 03/16/18 04:56 Dose: 100 mls/hr Sodium Chloride (Sodium Chloride 0.9%) 1,000 mls @ 100 mls/hr IV .Q10H [facility] Last Admin: 03/16/18 14:51 Dose: 100 mls/hr Morphine Sulfate (Morphine) 4 mg IVP Q4H PRN PRN Reason: Pain, severe (8-10) Last Admin: 03/14/18 09:08 Dose: 4 mg Morphine Sulfate (Morphine) 2 mg IVP Q15MIN PRN PRN Reason: Pain, moderate (4-7) Ondansetron HCl (Zofran Inj) 4 mg IVP Q4H PRN PRN Reason: Nausea/Vomiting Last Admin: 03/13/18 23:21 Dose: 4 mg Ondansetron HCl (Zofran Inj) 4 mg IVP ONCE PRN PRN Reason: Nausea/Vomiting Pantoprazole Sodium (Protonix Ec Tab) 40 mg PO 0600 [facility] Last Admin: 03/17/18 05:25 Dose: 40 mg Polyethylene Glycol (Miralax) 17 gm PO TID [facility] Last Admin: 03/17/18 15:09 Dose: Not Given Sertraline HCl (Zoloft) 100 mg PO DAILY [facility] Last Admin: 03/17/18 09:59 Dose: Not Given - Labs Labs: 03/17/18 06:15 03/17/18 06:15 PT 12.1 SECONDS (9.4-12.5) 03/13/18 06:15 INR 1.05 (0.93-1.08) 03/13/18 06:15 APTT 27.4 Seconds (25.1-36.5) 03/11/18 10:40 - Constitutional Appears: Chronically Ill - Head Exam Head Exam: ATRAUMATIC, NORMAL INSPECTION, NORMOCEPHALIC - Eye Exam Eye Exam: Normal appearance, Scleral icterus - ENT Exam ENT Exam: Mucous Membranes Moist - Neck Exam Neck Exam: Normal Inspection - Respiratory Exam Respiratory Exam: Clear to Ausculation Bilateral, NORMAL BREATHING PATTERN - Cardiovascular Exam Cardiovascular Exam: REGULAR RHYTHM, +S1, +S2 - GI/Abdominal Exam GI & Abdominal Exam: Soft, Normal Bowel Sounds - Extremities Exam Extremities Exam: Normal Inspection - Back Exam Back Exam: NORMAL INSPECTION - Neurological Exam Neurological Exam: Alert, Awake, Oriented x3 - Skin Additional comments: icteric Assessment and Plan - Assessment and Plan (Free Text) Assessment: 1. Adenocarcinoma unknown primary, from biopsy of omental mass . Immunostains favor colo-rectal. 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 Biopsy bile duct lesion awaited. He wants opinion at [facility]. I advised him to get records and CDs form [facility]. He indicated that his has obtained the records. 2. S/P biliary drainage, metallic stent placement. Slow decline in bilirubin. GI following. 3. Right ureteral stents placed today. Discussed with Dr. Walls. He indicated that he will observe for the improvement . If worsening hydronephrosis, he will need percutaneous drain . 4. Port placed today . Thank you Dr. Medrano for allowing us to participate in his care.
--- NOTE | 2018-03-18 06:02 | OP ---
PROCEDURE DATE: 03/17/2018 PREOPERATIVE DIAGNOSIS: Right hydronephrosis. POSTOPERATIVE DIAGNOSES: Right hydronephrosis plus pelvic mass. PROCEDURE: Cystoscopy, right retrograde pyelogram, insertion of the right ureteral stent. ATTENDING SURGEON: Dr. Sony Walls. ANESTHESIA: General. SPECIMEN: There were none. DRAINS: A 6 x 28 right ureteral stent. COMPLICATIONS: High-grade obstruction. OPERATIVE FINDINGS: After informed consent was obtained, the patient was taken to the operating room, placed on operating table. Anesthesia was administered. Patient was placed in the dorsal lithotomy position and prepped and draped in the usual sterile fashion. Patient had intravenous antibiotics previously, he had placement of a Port-A-Cath by Dr. Freddy Chiu earlier in the day. A 21-Bahraini cystoscope was placed in the patient's urethra, advanced proximally under direct vision until the bladder was entered. A full survey inspection of bladder was then performed, which revealed a large amount of bile-colored urine in the bladder. The urine was drained out and the bladder was refilled to improve visualization. Dark yellowish urine was noted exiting from the left ureteral orifice. The right ureteral orifice was heaped up and pinpoint; there appeared to be some type of mass pushing on the bladder from the outside. At this point, a 5-Bahraini open-ended ureteral catheter was passed and a sensor wire was passed through the open-ended ureteral catheter. The pinpoint orifice was able to be cannulated; however, the wire was needing an obstruction approximately half to one centimeter inside the orifice. Multiple attempts were made and the wire could not be passed. At this point, an angle-tip Glidewire was obtained. The angle-tip Glidewire also was able to be passed and after multiple attempts, the wire could be passed slightly beyond this point, but the ureteral catheter cannot be advanced. The open-ended ureteral catheter was then removed and an angle-tip Snell catheter was obtained. It was passed through the scope, then passed into the orifice. Multiple attempts were made with multiple wires and then I was able to advance angle-tip Glidewire past the obstruction and appeared to be located in the upper ureter. There appeared to be some contrast as well in the kidney. Previously, with the catheter in place, I was able to pass some contrast up the ureter and into the kidney. A biliary stent was also noted on fluoroscopy. After being able to advance the Snell catheter over the Glidewire, the Glidewire was removed and after moving the Snell catheter, I was able to pass the 5-Bahraini Frakes catheter over the wire and advanced up into the kidney. The wire was then removed and contrast was then instilled into the kidney. There was [id number] hydronephrosis noted. At this point, the sensor wire was able to be re-passed, it was coiled up in the kidney. There was a hydronephrotic drip noted from the Frakes catheter prior to passing the wire; urine also grossly yellowish in color. After passing the sensor wire, the Frakes catheter was removed. A 6 x 28 stent was obtained. It was passed through the cystoscope over the wire and into the right ureter. I was able to advance the stent over the wire up to pass the obstruction until the stent was in proper position. When the stent was in proper position, the wire was removed. A coil was seen in the upper pole of the kidney on fluoroscopy. A coil was seen in bladder on cystoscopy. At this point, the procedure was completed, the bladder was drained and the cystoscope was removed. The patient tolerated the procedure well. He was returned to the supine position and taken to the recovery room awake in a stable condition. Sony Walls MD
[2018-03-18] MEDS: Pantoprazole 40 mg EC Tab PO SCH (06:31)
[2018-03-18 06:47] LABS: BASO # 0.04 K/mm3 (0.0-2.0); BASO % 0.4 % (0.0-3.0); EOS # 0.9 (0.0-0.7); EOS % 8.8 % (1.5-5.0); GRAN # 7.44 (1.4-6.5); GRAN % 73.3 % (50.0-68.0); HEMOGLOBIN 10.3 g/dL (14.0-18.0); LYMPH # 0.8 (1.2-3.4); LYMPH % 8.1 % (22.0-35.0); MEAN CELL VOLUME 86.9 fl (80.0-105.0); MEAN CORPUSCULAR HEMOGLOBIN 29.4 pg (25.0-35.0); MEAN CORPUSCULAR HGB CONC 33.9 g/dl (31.0-37.0); MEAN PLATELET VOLUME 11.8 fl (7.0-11.0); MONO % 9.4 % (1.0-6.0); RBC 3.5 10^6/uL (3.5-6.1); RED CELL DISTRIBUTION WIDTH 17.5 % (11.5-14.5); WHITE BLOOD COUNT 10.1 10^3/ul (4.5-11.0)
[2018-03-18 07:20] LABS: ALB/GLOB RATIO 1.1 (1.1-1.8); ALBUMIN 3.1 g/dL (3.0-4.8); ALT/SGPT 131 U/L (7-56); AST/SGOT 71 U/L (17-59); BLOOD UREA NITROGEN 21 mg/dL (7-21); CALCIUM 8.4 mg/dL (8.4-10.5); GFR AFRICAN-AMERICAN > 60; GFR NON-AFRICAN AMERICAN > 60
--- NOTE | 2018-03-18 07:30 | US ---
EXAM: US Abdomen Limited, Right Upper Quadrant CLINICAL HISTORY: 53 years old, male; Pain; Abdominal pain; Flank; Right upper quadrant (ruq); Additional info: Biliary system status TECHNIQUE: Real-time ultrasound of the right upper quadrant with image documentation. 85 images are submitted. Grayscale, color and spectral pulse Doppler images are submitted.A duplex/doppler ultrasound was performed specifically BOTH COLOR FLOW AND spectral Doppler analysis (waveforms) were performed and interpreted. COMPARISON: CT - PANCREATIC PROTOCOL 2018-03-12 10:30 FINDINGS: Artifacts: Limited due to bowel gas shadowing. Limited due to shadowing from the ribs. Liver: The liver measures 16.1 x 13.6 cm. Heterogeneous echogenic fatty liver. There is hepatic pedal flow in the portal vein. Gallbladder: The gallbladder wall measures 2 mm.There was no right upper quadrant tenderness during the sonographic examination. Correlation with patient's pain medication status is recommended. No gallstones. Biliary intraductal echogenicity representing Possible pneumobilia as perceived by the power transmission engineer. Common bile duct: Normal common bile duct measuring 5 mm for patient's age. No stones. No dilation. Pancreas: The pancreas is not well-seen. Echogenic pancreas. The pancreatic duct measures 2 mm. Right kidney: There is moderate to severe hydronephrosis with cortical thinning and presence of ureteral stent. Correlation with stent function is recommended. The right kidney measures 10.9 x 4.5 x 5.1 cm. Aorta: The visualized portions of abdominal aorta demonstrate patency. The aortic lumen is not measured. Inferior vena cava: The IVC is not seen. Free fluid: Abdominal and pelvic ascites. This may be related to hepatocellular disease. Abdominal ascites which could be related to hepatocellular disease. IMPRESSION: 1. There is moderate to severe hydronephrosis with cortical thinning and presence of ureteral stent. Correlation with stent function is recommended. No stent was seen on the prior CT scan examination dated March 12, 2018. 2. Abdominal and pelvic ascites. This may be related to hepatocellular disease versus infectious inflammatory/malignant etiology. Omental thickening and nodularity was seen on the CT scan. There is clinical suspicion for peritoneal metastasis as indicated on prior reports. 3. Biliary intraductal echogenicity representing Possible pneumobilia as perceived by the power transmission engineer. There was moderate to severe intrahepatic and extrahepatic biliary ductal dilatation seen on the CT scan from March 12, 2018. No biliary stent and pneumobilia was noted on the CT scan. Correlation with patient's hepatology/gastroenterology history and/or MRCP may be helpful.
[2018-03-18 07:50] VITALS: BP 125/73; PULSE 58; RESP 20; TEMP 98.5
[2018-03-18] MEDS: POLYETHYLENE GLYCOL 3350 17 GM/Dose PACKET PO SCH ×2 (08:57→09:00)
--- NOTE | 2018-03-18 09:24 | PN ---
SUBJECTIVE: The patient was seen and examined at bedside on the general medical lao. No acute events overnight. He remains afebrile and hemodynamically stable. The patient is s/p placement of MediPort and s/p right ureteral stent placement for underlying severe right hydronephrosis. He tolerated both procedures well and this morning states he feels great and offers no complaints. OBJECTIVE: VITAL SIGNS: Temperature 98.5, pulse 58, blood pressure 125/73, respiratory rate 20, oxygen saturation 99% on room air. GENERAL: Jaundiced man, sitting up in his chair, in no apparent distress. HEENT: PERRL, EOMI. Sclerae are icteric. No conjunctival pallor. NECK: No lymphadenopathy. No bruits. LUNGS: Clear to auscultation. CARDIOVASCULAR: Regular rate and rhythm. Normal S1 and S2. No murmurs, rubs or gallops. ABDOMEN: Normoactive bowel sounds. Soft, nontender and nondistended. EXTREMITIES: No edema. NEUROLOGIC: Awake, alert and oriented x 3. No focal motor deficits. LABORATORY DATA: WBC 10, hemoglobin 10, hematocrit 30, platelet 276. Chemistry reviewed and unremarkable. T bili 9.8, AST 71, ALT 131, alk phos 405. 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 PLAN: 1. Metastatic mucinous adenocarcinoma of unknown primary with obstructive jaundice secondary to obstructing common hepatic duct mass s/p ERCP with stent placement. Input from Dr. De Dios greatly appreciated. We are awaiting biopsy reports from brush biopsy from ERCP. Input from Dr. Fraga and Dr. Lino appreciated. The patient has expressed his desire to continue with Dr. Lino for management of his underlying malignancy. 2. Right-sided hydroureter s/p ureteral stent placement. Input from Dr. Walls appreciated. 3. Depression. Continue Zoloft 100 mg p.o. daily. 4. Prophylaxis. Continue Protonix for GI prophylaxis. DVT prophylaxis is not indicated as the patient is ambulatory. CODE STATUS: Full code. Rajinder Medrano MD [facility] # [id number] [facility]
--- NOTE | 2018-03-18 12:15 | RAD ---
PROCEDURE: Fluoroscopy up to 1 hour HISTORY: RETROGRADE PYELOGRAM / STENT INSERTION (RIGHT) COMPARISON: TECHNIQUE: Fluoroscopy was provided in the operating room. 125.7 seconds of fluoro time. Cumulative dose 23.17 mGy. Eighteen images were submitted FINDINGS: The study shows right-sided hydronephrosis and hydroureter with placement of a right ureteral stent IMPRESSION: As above
--- NOTE | 2018-03-18 13:58 | PN ---
DATE: 03/18/2018 SUBJECTIVE: The patient is walking around in his room comfortably. He denies any further abdominal pain. He is status post cystoscopy with placement of right ureteral stent for hydronephrosis. He appears less icteric. OBJECTIVE: VITAL SIGNS: Reveal temperature of 98.5, blood pressure 125/73, heart rate 58. HEENT: Reveal sclerae to be icteric. Conjunctivae pink. NECK: Supple. CHEST: Reveal lungs to be clear. HEART: Reveals regular rate and rhythm. ABDOMEN: Soft, nontender. No mass. EXTREMITIES: Show no edema. LABORATORY DATA: Reveal white blood cell count 10.1, hemoglobin 10.3. Chemistries reveal total bilirubin down to 9.8, AST 71, ALT 131, alkaline phosphatase of 405. Biopsies obtained from ERCP of common hepatic duct mass is nondiagnostic. IMPRESSION: Obstructive jaundice secondary to a common hepatic duct mass with omental metastasis. I suspect that this was a primary cholangiocarcinoma. The patient is day 5 status post endoscopic retrograde cholangiopancreatography with metal stent placement. Recommendations are the patient is to seek a oncologic opinion at [facility]. His bilirubin has done down by almost 50% since placement of biliary stent. No further GI workup is planned at this time. Kb De Dios MD
[2018-03-18] MEDS ORDERED: Amylase/Lipase/Protease 5,000 Units ECC PO SCH (16:30)
--- NOTE | 2018-03-20 04:45 | DS ---
ADMITTING DIAGNOSIS: Obstructive jaundice secondary to stage IV mucinous adenocarcinoma of unknown primary (favoring cholangiocarcinoma). DISCHARGE DIAGNOSES: Obstructive jaundice secondary to stage IV mucinous adenocarcinoma of unknown primary (favor cholangiocarcinoma) s/p ERCP with stent placement. SECONDARY DIAGNOSES: Right hydroureter s/p ureteral stent placement and depression. CONSULTATIONS: Dr. De Dios (GI), Dr. Lino (Hematology/Oncology), Dr. Walls (Urology), Dr. Fraga (Hematology/Oncology), Dr. Montgomery (GI) and Dr. Chiu (IR). IMAGING STUDIES: 1. Chest x-ray demonstrates no active disease. 2. MRCP demonstrates biliary obstruction just below the level of the cystic duct with moderate ascites with an omental mass and severe right-sided hydronephrosis. 3. CT of the abdomen and pelvis with contrast (pancreatic protocol) demonstrates markedly dilated intrahepatic biliary ducts and peritoneal carcinomatosis but no pancreatic mass. PROCEDURES: 1. ERCP with stent placement across the common hepatic duct mass with brush biopsy. 2. Placement of right-sided ureteral stent secondary to severe right hydroureter. 3. Placement of right anterior chest wall MediPort. 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 Fraga (Heme/Onc) after outpatient labs demonstrated severe hyperbilirubinemia of 16. The patient was initially seen in his PMD's office on 02/18/2018 for evaluation of nausea, vomiting and inability to tolerate p.o. intake. Physical examination at the time found him to be jaundiced and icteric but was otherwise unremarkable. He was sent for a CT of the abdomen and pelvis with findings demonstrating mild to moderate ascites and a mesenteric nodularity with caking highly suggestive of a tumor. Arrangements were made for a CT-guided biopsy with Dr. Freddy Chiu on 02/26/2018 with the pathology report confirming metastatic mucinous adenocarcinoma favoring colorectal origin. The patient was then referred to Dr. De Dios of GI and underwent an EGD and colonoscopy, both of which were unremarkable. He had continued followup with Dr. Fraga for staging of his newly diagnosed omental adenocarcinoma with unknown primary and was scheduled for a PET scan. On the day of presentation to the ED he was in the hospital performing his PET scan when he was notified that outpatient labs demonstrated significant increase in his bilirubin to 16 (up from 4.2 about 1 week prior). As such he was advised to present to the ED after his PET scan for continued management. HOSPITAL COURSE: Upon admission to the general medical lao he was started on aggressive IV fluid hydration. He was evaluated by Dr. De Dios and underwent and MRCP which demonstrated biliary obstruction just below the level of the cystic duct. Dr. Montgomery was consulted for ERCP and the patient underwent successful ERCP with stent placement across the obstructing common hepatic duct mass to alleviate the patient's hyperbilirubinemia. Over the following 36 hours, the patient was noted to have favorably trending bilirubin levels and improvement in his jaundice. At the request of the family, a second opinion was obtained with Dr. Lino of Heme/Onc. 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 The patient was agreeable with pursuing chemotherapy and as such underwent placement of a right anterior chest wall MediPort. Prior to discharge home he was evaluated by Dr. Walls of Urology given his severe right-sided hydronephrosis and underwent successful placement of a right ureteral stent. The remainder of the patient's hospital course and by hospital day #7, he was deemed stable for discharge to home after arrangements were made for a third opinion at [facility] in [place]. CONDITION: Improved but guarded. DISPOSITION: Home. DISCHARGE MEDICATIONS: Protonix 40 mg p.o. daily, Zoloft 100 mg p.o. daily and Ciprofloxacin 500 mg p.o. b.i.d. for 7 days. DISCHARGE INSTRUCTIONS: The patient was advised that if he has any development of increasing abdominal pain, nausea, vomiting, diarrhea, fevers, chills or rigors to present to his PMD or to the nearest ED immediately. FOLLOWUP: The patient will follow up with his PMD within 1 week of discharge. The patient will follow up with Dr. De Dios as scheduled. The patient will follow up with [facility] in [place] as scheduled. Rajinder Medrano MD [facility] # [id number] [facility]
== END 2018-03-18 14:03 | disposition home or self-care (01) | DRG 435 ==
LOC: ED 09:26 → ERH 11:58 → 5RNO 14:12
PROVIDERS: ADMIT Student in an Organized Health Care Education/Training Program; ATTEND Student in an Organized Health Care Education/Training Program
PROC: 0DJ08ZZ Inspection of Upper Intestinal Tract, Via Natural or Artificial Opening Endoscopic (ICD-10-PCS; 2018-03-13)
PROC: BF4CZZZ Ultrasonography of Hepatobiliary System, All (ICD-10-PCS; 2018-03-13)
PROC: BF47ZZZ Ultrasonography of Pancreas (ICD-10-PCS; 2018-03-13)
PROC: 0FB88ZX Excision of Cystic Duct, Via Natural or Artificial Opening Endoscopic, Diagnostic (ICD-10-PCS; principal; 2018-03-13 15:15)
PROC: 0FB78ZX Excision of Common Hepatic Duct, Via Natural or Artificial Opening Endoscopic, Diagnostic (ICD-10-PCS; 2018-03-13 15:15)
PROC: 0F798DZ Dilation of Common Bile Duct with Intraluminal Device, Via Natural or Artificial Opening Endoscopic (ICD-10-PCS; 2018-03-13 15:15)
PROC: 0T768DZ Dilation of Right Ureter with Intraluminal Device, Via Natural or Artificial Opening Endoscopic (ICD-10-PCS; 2018-03-17)
PROC: BT1D1ZZ Fluoroscopy of Right Kidney, Ureter and Bladder using Low Osmolar Contrast (ICD-10-PCS; 2018-03-17)
PROC: 0JH63WZ Insertion of Totally Implantable Vascular Access Device into Chest Subcutaneous Tissue and Fascia, Percutaneous Approach (ICD-10-PCS; 2018-03-17)
PROC: 02HV33Z Insertion of Infusion Device into Superior Vena Cava, Percutaneous Approach (ICD-10-PCS; 2018-03-17)
PROC: B548ZZA Ultrasonography of Superior Vena Cava, Guidance (ICD-10-PCS; 2018-03-17)
DX: C22.1 Intrahepatic bile duct carcinoma (principal); K83.1 Obstruction of bile duct; R18.8 Other ascites; N13.1 Hydronephrosis with ureteral stricture, not elsewhere classified; C78.6 Secondary malignant neoplasm of retroperitoneum and peritoneum; R59.1 Generalized enlarged lymph nodes; K26.9 Duodenal ulcer, unspecified as acute or chronic, without hemorrhage or perforation; K21.9 Gastro-esophageal reflux disease without esophagitis; L29.9 Pruritus, unspecified; K59.00 Constipation, unspecified; F32.9 Major depressive disorder, single episode, unspecified; F41.9 Anxiety disorder, unspecified; Z86.14 Personal history of Methicillin resistant Staphylococcus aureus infection; Z87.891 Personal history of nicotine dependence; Z80.1 Family history of malignant neoplasm of trachea, bronchus and lung; Z82.49 Family history of ischemic heart disease and other diseases of the circulatory system